=== PATIENT | male | born 1940 | race African-American/Black ===

== ENCOUNTER 2017-04-29 10:32 | Inpatient (IN) ==
[2017-04-29] MEDS ORDERED: ASPIRIN 325 MG TABLET PO STA (10:52)
[2017-04-29] MEDS ORDERED: ONDANSETRON 4 MG/2 ML VIAL IV STA (10:52)
[2017-04-29] MEDS ORDERED: MORPHINE 2 MG/1 ML SYRINGE IV STA (10:52)
[2017-04-29] MEDS ORDERED: METOPROLOL TARTRATE 5 MG/5 ML VIAL IV STA (10:52)
[2017-04-29] MEDS ORDERED: ENOXAPARIN 100 MG/ML SYRINGE SUBCUT STA (10:52)
--- NOTE | 2017-04-29 10:55 | Emergency Department Note ---
Arrival - Arrival Chief Complaint: Chest Pain Stated Complaint: chest pain ED Nursing Triage Note: Brought in by EMS c/o chest pain and SOB-onset last night. Reports pain relief with Nitro SL x's 2 by EMS. Also reports cough/ congestion for "a while" Mode of Arrival: Stretcher Limitations: No Limitations Source: Patient, RN Notes Reviewed Time Seen by Provider: 04/29/17 10:46 - History of Present Illness HPI Narrative: Patient is a 77-year-old black male with history of hypertension and diabetes mellitus who is seen today with a one-day history of chest pain which she describes as a tightness. Chest pain is substernal. Pain does not radiate. Patient has chronic shortness of breath. He denies cigarette smoking. Patient denies any prior history of heart disease. Shortness of breath is worse with exertion. Patient states that his pain began when he was at [employer]. Onset (ago): day(s) (1) Consistency: constant Severity: moderate Allergies/Adverse Reactions: Allergies Allergy/AdvReac Type Severity Reaction Status Date / Time No Known Allergies Allergy Verified 04/29/17 10:42 Home Medications: Home Medications Medication Instructions Recorded Confirmed Type Clopidogrel [Plavix] 75 mg PO DAILY tablet 03/17/15 07/21/16 Rx Insulin Lispro Prot/Lisp 75/25 40 unit SUBCUT AC SUPPER 30 Days 03/17/15 Rx [HumaLOG Mix 75/25] Insulin Lispro Prot/Lisp 75/25 60 unit SUBCUT AC BREAKFAST 30 Days 03/17/15 Rx [HumaLOG Mix 75/25] Potassium Chloride Cap/Tab [Micro 8 meq PO DAILY capsule 03/17/15 07/21/16 Rx K] Pravastatin [Pravachol] 20 mg PO DAILY tablet 03/17/15 07/21/16 Rx Aspirin [Ecotrin] 81 mg PO DAILY 07/20/16 07/21/16 History Carvedilol 25 mg PO BID 07/20/16 07/21/16 History Spironolactone 25 mg PO DAILY 07/20/16 07/21/16 History Review of System - Review of System 12 point system: reviewed and no additional remarkable complaints except as stated - Review of System Constitutional: Absent: chills, fever Cardiovascular: Present: chest pain, dyspnea on exertion. Absent: orthopnea, edema Gastrointestinal: Absent: abdominal pain, nausea, vomiting Medical,Surgical,& Family Hx - Medical History Cardio: History of: CHF, Hypertension No history of: Aneurysm, Cardiac Dysrhythmia, Cerebrovascular Disease, Congenital Heart Disease, CAD, [place], Pacemaker, PVD, Valvular Heart Disease, Cardiovascular Problems Psychological: No history of: Anxiety Disorders, ADHD, Behavior Problems, Bipolar Disorder, Depression, Previous Suicide Attempt, Psychiatric/Substance Abuse Tx, Schizophrenia, Violent Behavior, Psychiatric Problems Neurology: No history of: Brain Aneurysm, Cerebral Hemorrhage, Cerebrovascular Accident , Cerebral Palsy, Dementia, Migraine, Multiple Sclerosis, Parkinson's Disease, Peripheral Neuropathy, Seizures, Vertigo, Neurologocal Cancer HEENT: History of: Eye Problem (CATARACT SURGERY IN THE PAST) No history of: Ear Problem, Glaucoma, Oral Cancer, HEENT Problems Endocrine: History of: Diabetes Mellitus (IDDM), Dyslipidemia No history of: Diabetes Mellitus (NIDDM), Thyroid Disorder, Endocrine Cancer , Endocrine Problems Rheumatology: No history of;: Fibromyalgia, Myasthenia Gravis, Psoriasis Respiratory: History of: Asthma, Pneumonia, Respiratory Problems (SOB) No history of: Bronchitis, COPD, Intubation, Obstructive Sleep Apnea, Pulmonary Embolism, Pulmonary Hypertension, Lung Cancer Gastrointestinal: History of: GERD Musculoskeletal: No history of: Amputation, Back/Neck Problems, Degenerative Disk Disease, Herniated Disk, Musculoskeletal Cancer Hematology: No history of: Anemia, Blood Transfusion Reaction, Bleeding Problems, Clotting Problems, Sickle Cell Disease, Hematologic Cancer, Blood Disorders Other: No history of: Anesthesia Reactions, Cancer, HIV, Malignant Hyperthermia, MRSA, Skin Problems, Miscellaneous Medical Problems - Surgical History Cardiac Surgeries: Patient Denies: Femoral-Popliteal Bypass Graft, Cardiac Catheterization, Cardiac Surgery, Carotid Endarterectomy, Internal Defibrillator, Vascular Access Devices Thoracic Surgeries: Surgical HX of;: Kidney (Renal Surgery) (PROSTATE) Patient denies;: Lithotripsy, Nephrectomy, Organ Transplant, Lobectomy Neurologic Surgeries: Patient denies: Brain Aneurysm, Cerebral Hemorrhage, Neurologic Surgery HEENT Surgeries: Surgical HX of: Eye Surgery Patient denies: Carotid Endarterectomy, Thyroid Surgery, Tonsilectomy & Adenoidectomy Abdominal Surgeries: Patient denies: Abdominal Surgery, Appendectomy, Cholecystectomy, Colonoscopy , Gastric Bypass Surgery, EGD, Hernia Repair, Splenectomy Reproductive Surgeries: Surgical HX of;: Prostate Surgery Patient denies;: Cystoscopy, Genitourinary Surgery Orthopedic Surgeries: Patient denies;: Implanted Devices, Orthopedic Surgery, Spinal Surgery, Total Hip Replacement, Total Knee Replacement - Family History Family History: Reports;: Family Diabetes, Family Heart Disease, Family Hypertension Denies;: Family Anesthesia Reaction, Family Cancer - Social History Smoking Status: Never smoker Frequency of Alcohol Use: None Type of Drug Use: None Exam Vital Signs: Vital Signs Temperature 97.8 F 04/29/17 10:43 Pulse Rate 83 04/29/17 13:00 Respiratory Rate 18 04/29/17 13:00 Blood Pressure 161/94 04/29/17 13:00 O2 Sat by Pulse Oximetry 98 04/29/17 13:00 GENERAL: This is a well-nourished well-developed black male in no apparent distress. VITAL SIGNS: Reviewed HEENT: Head is atraumatic and normocephalic. Pupils are equal round react to light. Extraocular movements are intact. Oropharynx is benign with moist mucous membranes. NECK: Neck is soft and supple without tenderness. There are no masses. There is no lymphadenopathy. LUNGS: Lungs are clear to auscultation. Chest rises symmetrically. There is no chest wall tenderness. CV: Heart is rapid rate and rhythm without murmurs rubs or gallops. ABDOMEN: Abdomen is soft, nontender to palpation. There are no abdominal abnormal masses palpated. There is no organomegaly. Bowel sounds are present and active. SKIN: Skin is warm and dry. No rash. EXTREMITIES: Patient has full range of motion without tenderness. There is no pedal edema. NEUROLOGIC: Awake alert and oriented 4. Cranial nerves II through XII are grossly intact. Motor is 5 over 5 in all extremities bilaterally. Course - Consultations Consultation #1: Discussed with hospitalist. Patient will be admitted to their service. Time: 13:21 Results - Labs CBC & BMP: 04/29/17 12:44 04/29/17 12:44 Lab Results: I have reviewed the patients labs - EKG EKG results: interpreted by NGAD - Impressions EKG: Sinus tachycardia with a rate of 114, right bundle branch block, nonspecific ST-T wave changes. - Diagnostic Findings Procedure: Chest x-ray: image reviewed by me (No infiltrates, no pleural effusions.) Disposition Clinical Impression: Chest pain, Diabetes mellitus, Essential hypertension Case discussed with: patient Disposition: Disch To Home/Self Care Condition: Stable Time of Disposition: 13:21
--- NOTE | 2017-04-29 10:55 | EKG Report ---
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
[2017-04-29] MEDS ORDERED: ONDANSETRON 4 MG/2 ML VIAL ONE (11:11)
[2017-04-29] MEDS ORDERED: ENOXAPARIN 120 MG/0.8 ML SYRINGE SUBCUT ONE (11:11)
[2017-04-29] MEDS ORDERED: METOPROLOL TARTRATE 5 MG/5 ML VIAL IV ONE (11:12)
[2017-04-29] MEDS ORDERED: MORPHINE 2 MG/1 ML SYRINGE ONE (11:12)
[2017-04-29] MEDS ORDERED: ASPIRIN 325 MG TABLET ONE (11:12)
--- NOTE | 2017-04-29 11:19 | XRay Report ---
History: Chest pain Date: 04/29/2017 Study: Chest x-ray PA and lateral Comparison exam: March 13, 2015 chest x-ray The cardiac silhouette is upper normal in size. There is no mediastinal mass. The pulmonary vasculature is not engorged. There is no pleural effusion. The lungs and pleural spaces are clear. There is moderate thoracic spondylosis. Impression: No acute cardiopulmonary process. No adverse interval change compared to the previous study PROCEDURE INTERPRETED AT [facility] DEPARTMENT OF RADIOLOGY Final Report Signed by: Dr. Rosa Elena Membreno
[2017-04-29] MEDS ORDERED: ENOXAPARIN 80 MG/0.8 ML SYRINGE SUBCUT ONE (11:40)
[2017-04-29] MEDS ORDERED: ENOXAPARIN 30 MG/0.3 ML SYRINGE ONE (11:40)
[2017-04-29 12:51] LABS: Basophils % 0.3 % (0.0-0.8); Eosinophils # 0.3 10*3/uL (0.0-0.87); Hematocrit 33.2 VOL% (42.0-52.0); Hemoglobin 10.3 GM/DL (14.0-18.0); Immature Granulocytes % 0.3 %; Immature Granulocytes Absolute 0.02 #; Lymphocytes # 1.6 10*3/uL (1.4-4.0); Lymphocytes % 25.2 % (21.2-54.2); Mean Corpuscular Hemoglobin 26 PG (27-34); Mean Corpuscular Volume 83.4 FL (87-102); Mean Platelet Volume 10.7 FL (9.6-12.0); Monocytes # 0.7 10*3/uL (0.11-0.8); Monocytes % 10.6 % (1.7-12.7); Neutrophils # 3.7 10*3/uL (1.4-7.4); Neutrophils % 58.6 % (38.7-73.9); Platelet Count 175 T/CUMM (130-400); Red Blood Count 3.98 MC/CUMM (3.8-5.5); Red Cell Distribution Width 13.8 % (9.3-17.3); White Blood Count 6.3 T/CUMM (4-12)
[2017-04-29 13:03] LABS: INR 1.1; PT Patient Result 11.4 SECS; Partial Thromboplastin Time 33.1 SECS (0-40)
[2017-04-29 13:18] LABS: Alanine Aminotransferase 25 U/L (16-61); Albumin 2.9 G/DL (3.4-5.0); Alkaline Phosphatase 108 U/L (45-117); Aspartate Amino Transferase 18 U/L (0-37); Bilirubin,Total < 0.39 MG/DL (0.2-1.0); Blood Urea Nitrogen 17 MG/DL (7-18); Glucose 281 MG/DL (74-106); Osmolality,Calculated 290.4 MOS/KG (273-304); Potassium 4.2 MMOL/L (3.5-5.1); Sodium 140 MMOL/L (136-145); Total Protein 5.9 G/DL (6.4-8.3)
--- NOTE | 2017-04-29 14:02 | Hospitalist History & Physical ---
Assessment and Plan (1) Chest pain Status: Acute Assessment and plan: Due to the complexity of his comorbidities, we will perform a full cardiac workup. Troponins were noted at 0.020 at the time of admission, we will obtain serial troponins. If positive we will consult cardiology. Current Visit: Yes (2) Diabetes mellitus Status: Acute Assessment and plan: Blood glucose levels elevated at the time of admission at 281. We will obtain hemoglobin A1c and start Accu-Cheks with sliding scale coverage. Current Visit: Yes (3) Essential hypertension Status: Acute Assessment and plan: Blood pressures mildly elevated at the time of admission. We will resume home medications, monitor, and adjust accordingly. Current Visit: Yes History of Present Illness Chief complaint: Chest pain and shortness of breath History of present illness: This is a very pleasant 77-year-old male that presented to the ED at [facility] on this afternoon for evaluation of chest pain shortness of breath. Patient has a very extensive medical history significant for hypertension, diabetes, dyslipidemia, arthritis, pneumonia, and GERD. Patient has a surgical history significant for lithotripsy, prostatectomy, and cataract removal. The patient reports the onset of the above symptoms on last night. He reports that he did not inform his family of the symptoms that he was experiencing. He is seen by home health nurse who he in turn reported the symptoms to on this morning. She in turn called EMS who ultimately transported him here for further evaluation. Per EMS report he was given sublingual nitro 2 in route to the hospital which relieved his chest pain. Hematology panels were obtained which reported a white blood cell count at 6.3, hemoglobin 10.3, hematocrit 33.2, and platelet count at 175. Coagulation panels were obtained which reported an INR at 1.1 and PTT at 33.1. Chemistry panels were obtained which reported a sodium at 140, potassium 4.2, chloride 104 , carbon dioxide 27, anion gap at 13.2, BUN is 17, creatinine at 1.00, GFR at 104, glucose of 281, calcium at 9.0, total bilirubin at less than 0.39, AST 18, ALT 25, alkaline phosphatase at 18, total protein at 5.9 and albumin at 2.9. Cardiac enzymes were obtained which reported a troponin at 0.019. Chest x-ray was obtained which was absent for any acute cardiopulmonary process. After brief discussion with both Dr. Nicole and Dr. Shonna, the patient will be admitted to the hospitalist services for continuation of care. Home Medications Medication Instructions Recorded Confirmed Type Clopidogrel [Plavix] 75 mg PO DAILY tablet 03/17/15 07/21/16 Rx Insulin Lispro Prot/Lisp 75/25 40 unit SUBCUT AC SUPPER 30 Days 03/17/15 Rx [HumaLOG Mix 75/25] Insulin Lispro Prot/Lisp 75/25 60 unit SUBCUT AC BREAKFAST 30 Days 03/17/15 Rx [HumaLOG Mix 75/25] Potassium Chloride Cap/Tab [Micro 8 meq PO DAILY capsule 03/17/15 07/21/16 Rx K] Pravastatin [Pravachol] 20 mg PO DAILY tablet 03/17/15 07/21/16 Rx Aspirin [Ecotrin] 81 mg PO DAILY 07/20/16 07/21/16 History Carvedilol 25 mg PO BID 07/20/16 07/21/16 History Spironolactone 25 mg PO DAILY 07/20/16 07/21/16 History Allergies Allergy/AdvReac Type Severity Reaction Status Date / Time No Known Allergies Allergy Verified 04/29/17 10:42 Medical,Surgical,& Family Hx - Medical History Cardio: History of: CHF, Hypertension No history of: Aneurysm, Cardiac Dysrhythmia, Cerebrovascular Disease, Congenital Heart Disease, CAD, [place], Pacemaker, PVD, Valvular Heart Disease, Cardiovascular Problems Psychological: No history of: Anxiety Disorders, ADHD, Behavior Problems, Bipolar Disorder, Depression, Previous Suicide Attempt, Psychiatric/Substance Abuse Tx, Schizophrenia, Violent Behavior, Psychiatric Problems Neurology: No history of: Brain Aneurysm, Cerebral Hemorrhage, Cerebrovascular Accident , Cerebral Palsy, Dementia, Migraine, Multiple Sclerosis, Parkinson's Disease, Peripheral Neuropathy, Seizures, Vertigo, Neurologocal Cancer HEENT: History of: Eye Problem (CATARACT SURGERY IN THE PAST) No history of: Ear Problem, Glaucoma, Oral Cancer, HEENT Problems Endocrine: History of: Diabetes Mellitus (IDDM), Dyslipidemia No history of: Diabetes Mellitus (NIDDM), Thyroid Disorder, Endocrine Cancer , Endocrine Problems Rheumatology: No history of;: Fibromyalgia, Myasthenia Gravis, Psoriasis Respiratory: History of: Asthma, Pneumonia, Respiratory Problems (SOB) No history of: Bronchitis, COPD, Intubation, Obstructive Sleep Apnea, Pulmonary Embolism, Pulmonary Hypertension, Lung Cancer Gastrointestinal: History of: GERD Musculoskeletal: No history of: Amputation, Back/Neck Problems, Degenerative Disk Disease, Herniated Disk, Musculoskeletal Cancer Hematology: No history of: Anemia, Blood Transfusion Reaction, Bleeding Problems, Clotting Problems, Sickle Cell Disease, Hematologic Cancer, Blood Disorders Other: No history of: Anesthesia Reactions, Cancer, HIV, Malignant Hyperthermia, MRSA, Skin Problems, Miscellaneous Medical Problems - Surgical History Cardiac Surgeries: Patient Denies: Femoral-Popliteal Bypass Graft, Cardiac Catheterization, Cardiac Surgery, Carotid Endarterectomy, Internal Defibrillator, Vascular Access Devices Thoracic Surgeries: Surgical HX of;: Kidney (Renal Surgery) (PROSTATE) Patient denies;: Lithotripsy, Nephrectomy, Organ Transplant, Lobectomy Neurologic Surgeries: Patient denies: Brain Aneurysm, Cerebral Hemorrhage, Neurologic Surgery HEENT Surgeries: Surgical HX of: Eye Surgery Patient denies: Carotid Endarterectomy, Thyroid Surgery, Tonsilectomy & Adenoidectomy Abdominal Surgeries: Patient denies: Abdominal Surgery, Appendectomy, Cholecystectomy, Colonoscopy , Gastric Bypass Surgery, EGD, Hernia Repair, Splenectomy Reproductive Surgeries: Surgical HX of;: Prostate Surgery Patient denies;: Cystoscopy, Genitourinary Surgery Orthopedic Surgeries: Patient denies;: Implanted Devices, Orthopedic Surgery, Spinal Surgery, Total Hip Replacement, Total Knee Replacement - Family History Family History: Reports;: Family Diabetes, Family Heart Disease, Family Hypertension Denies;: Family Anesthesia Reaction, Family Cancer - Social History Smoking Status: Never smoker Frequency of Alcohol Use: None Type of Drug Use: None 12 point system: reviewed and no additional remarkable complaints except as stated Exam - Constitutional Vitals: Period Temp Pulse Resp BP Sys/Garcia Pulse Ox Last 24 Hr 97.8 F-97.8 F 79-114 16-24 149-162/93-105 95-98 General appearance: normal weight, no acute distress - Head Head exam: Present: normal inspection, normocephalic, atraumatic - Eye Eye exam: Present: EOMI, conjunctival injection Pupils: Present: LIVIA, normal accommodation - ENT ENT exam: Present: normal exam, normal external ear exam, normal oropharynx - Neck Neck exam: Present: normal inspection. Absent: lymphadenopathy, meningismus, thyromegaly - Respiratory Respiratory exam: Present: clear to auscultation bilaterally. Absent: rales, rhonchi, stridor, wheezes - Cardiovascular Cardiovascular exam: Present: regular rate and rhythm. Absent: carotid bruit, diastolic murmur, gallop, JVD, rubs, systolic murmur - GI/Abdominal GI/Abdominal exam: Present: normal bowel sounds, soft - Extremities Exam Extremities exam: Present: normal capillary refill, full ROM. Absent: normal inspection, calf tenderness, edema - Back Exam Back exam: Present: normal inspection - Neurological Exam Neurological exam: Present: alert, oriented X3 - Psychiatric Psychiatric exam: Present: normal affect, normal mood - Skin Skin exam: Present: normal color, warm, dry Results - Labs CBC & BMP: 04/29/17 12:44 04/29/17 12:44 Lab Results: I have reviewed the past 24 hour labs
[2017-04-29 17:27] LABS: Risk Ratio 3.6; VLDL CHOLESTEROL 21.4 MG/DL
[2017-04-29] MEDS: CARVEDILOL 25 MG TABLET PO SCH (21:49)
[2017-04-30 05:58] LABS: Calcium 9.2 MG/DL (8.5-10.1); Osmolality,Calculated 281.1 MOS/KG (273-304); Potassium 4.3 MMOL/L (3.5-5.1)
[2017-04-30] MEDS: ALBUTEROL 2.5 MG/3 ML NEB RESP TX SCH (07:34)
--- NOTE | 2017-04-30 08:18 | EKG Report ---
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
[2017-04-30] MEDS: POTASSIUM CHLORIDE 8 MEQ CAPSULE PO SCH (08:21)
[2017-04-30] MEDS: CLOPIDOGREL 75 MG TABLET PO SCH (08:21)
[2017-04-30] MEDS: PANTOPRAZOLE 40 MG TABLET PO SCH (08:22)
[2017-04-30] MEDS: SPIRONOLACTONE 25 MG TABLET PO SCH (08:22)
[2017-04-30] MEDS: ASPIRIN EC 81 MG TABLET PO SCH (08:22)
[2017-04-30] MEDS: CARVEDILOL 25 MG TABLET PO SCH ×2 (08:22→22:26)
--- NOTE | 2017-04-30 08:58 | Hospitalist Progress Note ---
Assessment and Plan (1) Chest pain Status: Acute Assessment and plan: Due to the complexity of his comorbidities, we will perform a full cardiac workup. Troponins were noted at 0.020 at the time of admission, we will obtain serial troponins. If positive we will consult cardiology. 04/30-serial troponins have been essentially negative; thus far. No further complaints of chest pain reported. Current Visit: Yes (2) Diabetes mellitus Status: Acute Assessment and plan: Blood glucose levels elevated at the time of admission at 281. We will obtain hemoglobin A1c and start Accu-Cheks with sliding scale coverage. 04/30-blood glucose levels remain elevated; continue Accu-Checks with sliding scale coverage. Hemoglobin A1c was not obtained on yesterday we will reorder today Current Visit: Yes (3) Essential hypertension Status: Acute Assessment and plan: Blood pressures mildly elevated at the time of admission. We will resume home medications, monitor, and adjust accordingly. Current Visit: Yes (4) COPD (chronic obstructive pulmonary disease) Status: Acute Assessment and plan: The source of the chest pain and discomfort may be from a true underlying respiratory issue. The patient generally uses inhaled bronchodilators at home. We started the patient on inhaled bronchodilators at the time of admission and the patient was observed using his own personal inhaler. This morning upon assessment he was noted to have a noted expiratory wheeze, BMP was not obtained on yesterday we will obtain one today however the patient may need intravenous corticosteroids. Recheck chest x-ray in a.m. Current Visit: Yes Hospitalist: Subjective Interval history: Patient seen and examined; chart reviewed. No further episodes of chest pain reported per patient; however the patient has noted expiratory wheeze. I observed him using his on personal inhaler. Encouraged him not to use the inhaler in addition to the scheduled bronchodilator treatments that are being administered now. I informed the nursing staff that the patient was noted using his own inhaler. Exam - Constitutional Vitals: Period Temp Pulse Resp BP Sys/Garcia Pulse Ox Last 24 Hr 96.8 F-97.8 F 66-114 16-24 149-181/82-105 95-100 General appearance: normal weight, no acute distress - Head Head exam: Present: normal inspection, normocephalic - Eye Eye exam: Present: EOMI, conjunctival injection Pupils: Present: LIVIA, normal accommodation - ENT ENT exam: Present: normal exam, normal external ear exam - Neck Neck exam: Present: normal inspection. Absent: lymphadenopathy, meningismus, tenderness, thyromegaly - Respiratory Respiratory exam: Present: wheezes - Cardiovascular Cardiovascular exam: Present: regular rate and rhythm. Absent: carotid bruit, diastolic murmur, gallop, JVD, rubs, systolic murmur - GI/Abdominal GI/Abdominal exam: Present: normal bowel sounds, soft - Extremities Exam Extremities exam: Present: normal inspection, normal capillary refill, full ROM , edema - Back Exam Back exam: Present: normal inspection - Neurological Exam Neurological exam: Present: alert, oriented X3, CN II-XII intact - Psychiatric Psychiatric exam: Present: normal affect, normal mood - Skin Skin exam: Present: normal color, warm, dry Results - Labs CBC & BMP: 04/29/17 12:44 04/30/17 05:02 Lab Results: I have reviewed the past 24 hour labs
[2017-04-30] MEDS ORDERED: LOSARTAN 25 MG TABLET PO SCH (09:00)
[2017-04-30] MEDS: methylPREDNISolone SOD SUC 125 MG/2 ML VIAL IV SCH ×2 (09:37→16:33)
[2017-04-30] MEDS ORDERED: DEXTROSE 50% 25 GM/50 ML VIAL IV PRN (09:41)
[2017-04-30] MEDS ORDERED: GLUCAGON 1 MG VIAL IM PRN (09:41)
[2017-04-30] MEDS ORDERED: ONDANSETRON 4 MG/2 ML VIAL IV PRN (09:41)
--- NOTE | 2017-04-30 10:29 | Cardiology Consult Note ---
Assessment and Plan - Time spent with patient Time spent with patient: Greater than 30 minutes (due to assessment, plan, and documentation) (1) Chest pain Status: Acute Assessment and plan: See plan of care listed below. Current Visit: Yes (2) Dyspnea Status: Chronic Assessment and plan: See plan of care listed below. Current Visit: No (3) Coronary artery disease Status: Chronic Assessment and plan: See plan of care listed below. Current Visit: Yes (4) Status post insertion of drug eluting coronary artery stent Status: Chronic Assessment and plan: See plan of care listed below. Current Visit: No (5) Essential hypertension Status: Chronic Assessment and plan: See plan of care listed below. Current Visit: Yes (6) Dyslipidemia Status: Chronic Assessment and plan: See plan of care listed below. Current Visit: No (7) Diabetes mellitus Status: Chronic Assessment and plan: See plan of care listed below. Current Visit: Yes (8) Former smoker, stopped smoking in distant past Status: Chronic Assessment and plan: See plan of care listed below. Current Visit: Yes (9) Obesity (BMI 30-39.9) Status: Chronic Assessment and plan: See plan of care listed below. Current Visit: Yes History of Present Illness - Data of Consult Patient: known to practice within the last 3 years (last seen by Dr. 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 FREDERICK PCP: DR. RUSH Mr. Rodriguez is a 77 year old -[place] male with history of hypertension, diabetes, hyperlipidemia, coronary artery disease, and GERD. He is status post stent placement of the left anterior descending artery and mid posterior descending artery on 03/15/2015. At that time he was found to have an ejection fraction of 30-35% with moderate to severe global hypokinesis. He was last seen by Dr. Frederick on August 14, 2015 has not been seen by cardiology since that time. He is a former smoker, having quit in 1964. He presented to the hospital yesterday with complaints of chest pain and shortness of breath. He reports he has had chronic shortness of breath for the past 20 years but that this has been worse over the past year or so. He tells me that he started having some chest discomfort on Saturday night and woke up on Saturday morning with midsternal to left-sided chest tightness. He had no associated palpitations, nausea, diaphoresis. It did not radiate. It is nonreproducible. He can identify no aggravating or alleviating factors. He tells me that this pain lasted until he was seen by medical personnel. He informed his home health nurse about this pain yesterday morning and she called ambulance. He was given 2 sublingual nitroglycerin upon arrival to the ER which relieved his pain. He denies any recent exertional chest discomfort but reports he has severe dyspnea on exertion and can walk no more than 20-30 feet without becoming severely short of breath and needing to stop and rest. On admission, he has had 2 sets of negative cardiac biomarkers and his EKG is unremarkable. Will recheck a third set of cardiac enzymes. An echocardiogram is pending. His home medications including Plavix and aspirin have been continued. ASSESSMENT/PLAN: 1. CHEST PAIN - Patient presents with symptoms typical for angina in the setting of negative cardiac biomarkers and no acute EKG changes. Patient's Plavix and ASA have been continued. Will further discuss the need for further evaluation with Dr. Nelson and await his recommendations. 2. SHORTNESS OF BREATH- Patient reports this has progressively worsened over the last year. Echocardiogram is pending. Prior EF was 30-35%. 3. CORONARY ARTERY DISEASE - S/P stent to LAD and mid PDA on 03/15/15. Contine ASA, Plavix, Coreg, Cozaar. 4. HYPERTENSION - Elevated on admission. Remains suboptimally controlled. Will continue to monitor and adjust medications accordingly. 5. HYPERLIPIDEMIA - Triglycerides 107, Cholesterol 187, LDL 128, HDL 52. Will start Crestor 20mg PO QHS and monitor. 6. DIABETES - Patient has been started on accuchecks with sliding scale insulin. 7. FORMER SMOKER - Patient reportedly quit in 1964. 8. OBESITY - Chronic. Dr. Nelson to follow with further plan and addendum. CC: Preethi Oliveira MD - Home Medications and Allergies Home Medications: Home Medications Medication Instructions Recorded Confirmed Type Clopidogrel [Plavix] 75 mg PO DAILY tablet 03/17/15 04/29/17 Rx Potassium Chloride Cap/Tab [Micro 8 meq PO DAILY capsule 03/17/15 04/29/17 Rx K] Aspirin [Ecotrin] 81 mg PO DAILY 07/20/16 04/29/17 History Carvedilol 25 mg PO BID 07/20/16 04/29/17 History Spironolactone 25 mg PO DAILY 07/20/16 04/29/17 History Albuterol Sulfate [Ventolin HFA] 1 puff INH DAILY 04/29/17 04/29/17 History Dapagliflozin Propanediol [Farxiga] 10 mg PO DAILY 04/29/17 04/29/17 History Insulin Glargine,Hum.rec.anlog 86 units SUBCUT DAILY 04/29/17 04/29/17 History [Toujosé antonioo SoloStar] Losartan Potassium 25 mg PO DAILY 04/29/17 04/29/17 History Pantoprazole Tab [Protonix Tab] 40 mg PO DAILY 04/29/17 04/29/17 History Sitagliptin Phosphate [Januvia] 50 mg PO DAILY 04/29/17 04/29/17 History Allergies/Adverse Reactions: Allergies Allergy/AdvReac Type Severity Reaction Status Date / Time No Known Allergies Allergy Verified 04/29/17 10:42 Review of systems: - Constitutional: Present: fatigue, As per HPI. Absent: anorexia, chills, daytime sleepiness, excessive sweating, fever(s), frequent falls, headache(s), increased appetite, lethargy, malaise, night sweats, stops breathing during sleep, weakness, weight gain, weight loss. - EENT Eyes: Present: As per HPI. Absent: blurry vision, diplopia, loss of vision Ears: Present: As per HPI. Absent: decreased hearing, ear discharge, ear pain Nose, mouth and throat: Present: As per HPI. Absent: dysphagia, epistaxis, headache(s), hoarseness, lip swelling, nasal congestion, neck mass, neck pain, sinus pressure, sore throat, throat swelling, tongue swelling, vertigo - Cardiovascular: Present: chest pain at rest, dyspnea, dyspnea on exertion, edema, as per HPI. Absent: chest pain with activity, claudication, diaphoresis , radiating jaw, neck or arm pain, lightheadedness, orthopnea, palpitations, PND - Respiratory: Present: dyspnea, dyspnea on exertion, as per HPI. Absent: cough , hemoptysis, wheezing, snoring, pain on inspiration - Gastrointestinal: Present: As per HPI. Absent: abdominal pain, bloating, change in bowel habits, constipation, diarrhea, heartburn, hematemesis, hematochezia, loose stools, melena, nausea, vomiting - Genitourinary: Present: As per HPI. Absent: difficulty urinating, dysuria, flank pain, hematuria, nocturia, urinary frequency, urinary incontinence - Musculoskeletal: Present: As per HPI. Absent: arthralgias, back pain, joint swelling, limited range of motion, muscle cramps, muscle weakness, myalgias - Neurological: Present: As per HPI. Absent: abnormal gait, abnormal speech, behavioral changes, confusion, convulsions, disequilibrium, dizziness, focal weakness, frequent falls, headache(s), memory loss, numbness, paresthesias, radicular pain, syncope, tremor(s) - Psychiatric: Present: As per HPI. Absent: anxiety, confusion, depression, panic attacks - Endocrine: Present: fatigue, As per HPI. Absent: cold intolerance, heat intolerance, polydipsia, polyphagia - Hematologic/Lymphatic: Present: As per HPI. Absent: easy bleeding, easy bruising, lymphadenopathy Medical,Surgical,& Family Hx - Medical History Cardio: History of: CHF, Hypertension No history of: Aneurysm, Cardiac Dysrhythmia, Cerebrovascular Disease, Congenital Heart Disease, CAD, MD, Pacemaker, PVD, Valvular Heart Disease, Cardiovascular Problems Psychological: No history of: Anxiety Disorders, ADHD, Behavior Problems, Bipolar Disorder, Depression, Previous Suicide Attempt, Psychiatric/Substance Abuse Tx, Schizophrenia, Violent Behavior, Psychiatric Problems Neurology: No history of: Brain Aneurysm, Cerebral Hemorrhage, Cerebrovascular Accident , Cerebral Palsy, Dementia, Migraine, Multiple Sclerosis, Parkinson's Disease, Peripheral Neuropathy, Seizures, Vertigo, Neurologocal Cancer HEENT: History of: Eye Problem (CATARACT SURGERY IN THE PAST) No history of: Ear Problem, Glaucoma, Oral Cancer, HEENT Problems Endocrine: History of: Diabetes Mellitus (IDDM), Dyslipidemia No history of: Diabetes Mellitus (NIDDM), Thyroid Disorder, Endocrine Cancer , Endocrine Problems Rheumatology: No history of;: Fibromyalgia, Myasthenia Gravis, Psoriasis Respiratory: History of: Asthma, Pneumonia, Respiratory Problems (SOB) No history of: Bronchitis, COPD, Intubation, Obstructive Sleep Apnea, Pulmonary Embolism, Pulmonary Hypertension, Lung Cancer Gastrointestinal: History of: GERD Musculoskeletal: No history of: Amputation, Back/Neck Problems, Degenerative Disk Disease, Herniated Disk, Musculoskeletal Cancer Hematology: No history of: Anemia, Blood Transfusion Reaction, Bleeding Problems, Clotting Problems, Sickle Cell Disease, Hematologic Cancer, Blood Disorders Other: No history of: Anesthesia Reactions, Cancer, HIV, Malignant Hyperthermia, MRSA, Skin Problems, Miscellaneous Medical Problems - Surgical History Cardiac Surgeries: Patient Denies: Femoral-Popliteal Bypass Graft, Cardiac Catheterization, Cardiac Surgery, Carotid Endarterectomy, Internal Defibrillator, Vascular Access Devices Thoracic Surgeries: Surgical HX of;: Kidney (Renal Surgery) (PROSTATE) Patient denies;: Lithotripsy, Nephrectomy, Organ Transplant, Lobectomy Neurologic Surgeries: Patient denies: Brain Aneurysm, Cerebral Hemorrhage, Neurologic Surgery HEENT Surgeries: Surgical HX of: Eye Surgery Patient denies: Carotid Endarterectomy, Thyroid Surgery, Tonsilectomy & Adenoidectomy Abdominal Surgeries: Patient denies: Abdominal Surgery, Appendectomy, Cholecystectomy, Colonoscopy , Gastric Bypass Surgery, EGD, Hernia Repair, Splenectomy Reproductive Surgeries: Surgical HX of;: Prostate Surgery Patient denies;: Cystoscopy, Genitourinary Surgery Orthopedic Surgeries: Patient denies;: Implanted Devices, Orthopedic Surgery, Spinal Surgery, Total Hip Replacement, Total Knee Replacement - Family History Family History: Reports;: Family Diabetes, Family Heart Disease, Family Hypertension Denies;: Family Anesthesia Reaction, Family Cancer - Social History Smoking Status: Former smoker Have you smoked in the last 12 months: No Frequency of Alcohol Use: None Type of Drug Use: None Marital Status: Lives With:: Alone Functional capacity: independent ambulation Physical Examination Vital Signs Temp Pulse Resp BP Pulse Ox 97.8 F 114 H 22 162/105 95 04/29/17 10:38 04/29/17 10:38 04/29/17 10:38 04/29/17 10:38 04/29/17 10:38 Other: General appearance: Pleasant and cooperative. Overweight, no acute distress. - Head Head exam: Present: normal inspection, normocephalic, atraumatic. Absent: hematoma, laceration - Eye Eye exam: Present: EOMI. Absent: conjunctival injection, nystagmus, periorbital swelling, scleral icterus, laceration to eyelids Pupils: Present: PERRL. Absent: constricted, dilated, fixed, irregular, unequal - ENT ENT exam: Present: normal exam, normal external ear exam - Neck Neck exam: Present: normal inspection. Absent: lymphadenopathy, meningismus, tenderness, thyromegaly - Respiratory Respiratory exam: Present: clear to auscultation bilaterally. Absent: accessory muscle use, chest wall tenderness - Cardiovascular Cardiovascular exam: Present: regular rate and rhythm. Absent: carotid bruit, gallop, JVD, rubs, murmur - GI/Abdominal GI/Abdominal exam: Present: normal bowel sounds, soft. Absent: distended, firm , guarding, hernia, mass, tenderness, rebound. - Extremities Exam Extremities exam: Present: normal inspection, normal capillary refill. Upper extremity pulses 2+. Lower extremity pulses 2+. Trace pretibial edema. Absent: calf tenderness -Musculoskeletal Exam Musculoskeletal: Present: No Fluid Collection, No Pain, Normal Range of Motion - Back Exam Back exam: Present: normal inspection. Absent: muscle spasm, vertebral tenderness - Neurological Exam Neurological exam: Present: alert, oriented X3, grossly intact without resting or essential tremor - Psychiatric Psychiatric exam: Present: normal affect, normal mood - Skin Skin exam: Present: normal color, warm, dry, intact. Absent: cyanosis, diaphoretic, rash, urticaria Result/EKG - Labs CBC & BMP: 04/29/17 12:44 04/30/17 05:02 Lab Results: I have reviewed the past 24 hour labs Labs: Laboratory Results - last 24 hr 04/29/17 04/29/17 04/29/17 12:44 12:44 12:44 WBC 6.3 RBC 3.98 Hgb 10.3 L Hct 33.2 L MCV 83.4 L MCH 26 L MCHC 31.0 L RDW 13.8 Plt Count 175 MPV 10.7 Neut % (Auto) 58.6 Lymph % (Auto) 25.2 Ballard % (Auto) 10.6 Eos % (Auto) 5.0 Baso % (Auto) 0.3 Neut # (Auto) 3.7 Lymph # (Auto) 1.6 Ballard # (Auto) 0.7 Eos # (Auto) 0.3 Baso # (Auto) 0.0 Immature Gran % 0.3 Nucleated RBC % 0.0 Immature Gran # 0.02 Nucleated RBCs # 0.00 INR 1.1 PT Patient/Control Mix 11.4 Circ Anticoag PTT 33.1 Sodium 140 Potassium 4.2 Chloride 104 Carbon Dioxide 27 Anion Gap 13.2 BUN 17 Creatinine 1.00 GFR Calculation 104 BUN/Creatinine Ratio 17.00 Glucose 281 H Hemoglobin A1c Calculated Osmolality 290.4 Calcium 9.0 Magnesium Total Bilirubin < 0.39 AST 18 ALT 25 Alkaline Phosphatase 108 Troponin I Total Protein 5.9 L Albumin 2.9 L Globulin 3.0 Albumin/Globulin Ratio 0.9 L Triglycerides Cholesterol LDL Cholesterol VLDL Cholesterol HDL Cholesterol Heart Disease Risk Ratio 04/29/17 04/29/17 04/29/17 12:44 15:00 15:08 WBC RBC Hgb Hct MCV MCH MCHC RDW Plt Count MPV Neut % (Auto) Lymph % (Auto) Ballard % (Auto) Eos % (Auto) Baso % (Auto) Neut # (Auto) Lymph # (Auto) Ballard # (Auto) Eos # (Auto) Baso # (Auto) Immature Gran % Nucleated RBC % Immature Gran # Nucleated RBCs # INR PT Patient/Control Mix Circ Anticoag PTT Sodium Potassium Chloride Carbon Dioxide Anion Gap BUN Creatinine GFR Calculation BUN/Creatinine Ratio Glucose Hemoglobin A1c Calculated Osmolality Calcium Magnesium Total Bilirubin AST ALT Alkaline Phosphatase Troponin I 0.019 0.020 Total Protein Albumin Globulin Albumin/Globulin Ratio Triglycerides 107 Cholesterol 187 LDL Cholesterol 128.0 VLDL Cholesterol 21.4 HDL Cholesterol 52 Heart Disease Risk Ratio 3.60 04/29/17 04/30/17 04/30/17 17:42 05:02 09:19 WBC RBC Hgb Hct MCV MCH MCHC RDW Plt Count MPV Neut % (Auto) Lymph % (Auto) Ballard % (Auto) Eos % (Auto) Baso % (Auto) Neut # (Auto) Lymph # (Auto) Ballard # (Auto) Eos # (Auto) Baso # (Auto) Immature Gran % Nucleated RBC % Immature Gran # Nucleated RBCs # INR PT Patient/Control Mix Circ Anticoag PTT Sodium 142 Potassium 4.3 Chloride 106 Carbon Dioxide 28 Anion Gap 12.3 BUN 13 Creatinine 0.90 GFR Calculation 122 BUN/Creatinine Ratio 14.00 Glucose 74 Hemoglobin A1c Calculated Osmolality 281.1 Calcium 9.2 Magnesium 2.0 Total Bilirubin AST ALT Alkaline Phosphatase Troponin I 0.016 < 0.015 Total Protein Albumin Globulin Albumin/Globulin Ratio Triglycerides Cholesterol LDL Cholesterol VLDL Cholesterol HDL Cholesterol Heart Disease Risk Ratio 04/30/17 09:19 WBC RBC Hgb Hct MCV MCH MCHC RDW Plt Count MPV Neut % (Auto) Lymph % (Auto) Ballard % (Auto) Eos % (Auto) Baso % (Auto) Neut # (Auto) Lymph # (Auto) Ballard # (Auto) Eos # (Auto) Baso # (Auto) Immature Gran % Nucleated RBC % Immature Gran # Nucleated RBCs # INR PT Patient/Control Mix Circ Anticoag PTT Sodium Potassium Chloride Carbon Dioxide Anion Gap BUN Creatinine GFR Calculation BUN/Creatinine Ratio Glucose Hemoglobin A1c 8.5 H Calculated Osmolality Calcium Magnesium Total Bilirubin AST ALT Alkaline Phosphatase Troponin I Total Protein Albumin Globulin Albumin/Globulin Ratio Triglycerides Cholesterol LDL Cholesterol VLDL Cholesterol HDL Cholesterol Heart Disease Risk Ratio - EKG EKG results: interpreted by me, sinus rhythm (with right bundle branch block )
[2017-04-30 11:36] LABS: CKMB % 2.5 %; Troponin I Only < 0.015 NG/ML (0.00-0.045)
[2017-04-30] MEDS: INSULIN REGULAR 100 UNIT/ML SUBCUT SCH ×3 (12:11→22:25)
[2017-04-30 16:37] LABS: CKMB % 2.9 %; Troponin I Only < 0.015 NG/ML (0.00-0.045)
--- NOTE | 2017-04-30 18:37 | ECHO Report ---
Freeman Rodriguez Exam Date: 04/30/2017 07:53 Referring Physician: Technologist: yina Faust ARDMS, RVT Age: 77 Ht (in): 68 Wt (lb): 248 Gender: M Exam Location: [facility] Echo Indications: Chest pain, unspecified, Essential (primary) hypertension, Shortness of breath, Diabetes BP: 166 / 89 HR: 74 Rhythm: Sinus Technical Quality: Good IMPRESSIONS Mild to moderate left ventricular hypertrophy. Left ventricular ejection fraction is estimated at 55%. The right atrium is mildly enlarged. The left atrium is mildly enlarged. Trace mitral valve regurgitation. Aortic valve sclerosis without stenosis or regurgitation. Sessile 0.7 cm, round pedunculated mass below the AV [ ? myxoma in an unusual location --not fixed to the valve] . Trace tricuspid valve regurgitation. Tricuspid regurgitation velocities suggest a PAP of 28 mmHg. Trace pulmonary valve regurgitation. MEASUREMENTS (Male / Female) Normal Values 2D ECHO LV Diastolic Diameter PLAX 5.5 cm 4.2 - 5.9 / 3.9 - 5.3 cm LV Systolic Diameter PLAX 3.5 cm LV Fractional Shortening PLAX 35.6 % IVS Diastolic Thickness 1.4 cm 0.6 - 1.0 / 0.6 - 0.9 cm LVPW Diastolic Thickness 1.1 cm 0.6 - 1.0 / 0.6 - 0.9 cm RV Internal Dim ED PLAX 3.5 cm Aortic Root Diameter 3.4 cm LA Systolic Diameter LX 4.9 cm 3.0 - 4.0 / 2.7 - 3.8 cm DOPPLER TR Peak Velocity 212.0 cm/s TR Peak Gradient 18.0 mmHg FINDINGS Left Ventricle Normal left ventricular cavity size. Mild left ventricular hypertrophy. Left ventricular ejection fraction is estimated at 55%. Right Ventricle The right ventricle is normal in size and function. Right Atrium The right atrium is mildly enlarged. Left Atrium The left atrium is mildly enlarged. Mitral Valve Morphologically normal mitral valve. Trace mitral valve regurgitation. Aortic Valve Aortic valve sclerosis without stenosis or regurgitation. sessile 0.7 cm, round pedunculated mass below the AV[ ? myxoma] Tricuspid Valve Morphologically normal tricuspid valve. Trace tricuspid valve regurgitation. Tricuspid regurgitation velocities suggest a PAP of 28 mmHg. Pulmonic Valve Morphologically normal pulmonic valve. Trace pulmonary valve regurgitation. Pericardium Normal pericardium without effusion. Aorta Normal ascending aorta dimension. Dennis Touchstone MD (Electronically Signed) Final Date: 30 April 2017 18:36
--- NOTE | 2017-05-01 00:48 | History and Physical Update ---
Sedation H&P Update - History and Physical H&P was reviewed, the patient examined and there: are no changes in the patients condition since last H&P was completed. - Dictation Physical: refer to H&P completed by admitting physician - Physical Exam Mental Status: alert and oriented Heart: regular rate and rhythm Lung: clear to auscultation Abdomen: within normal limits Vitals: within normal limits - Sedation Plan for Sedation: minimal Patient Consent: Procedure disscussed with patient and patinet has consented., Risks and benefits were discussed with patient,including infection,, bleeding, injury to surrounding structures, seizure, temporary nerve, Patient understands and accepts potential risks/benefits and agrees to, proceed. ASA Class: II Airway Assessment: Class III: Soft palate, base of uvula visible
[2017-05-01] MEDS: methylPREDNISolone SOD SUC 125 MG/2 ML VIAL IV SCH ×3 (01:42→17:29)
[2017-05-01 05:35] LABS: Basophils % 0.1 % (0.0-0.8); Hematocrit 34.4 VOL% (42.0-52.0); Hemoglobin 10.7 GM/DL (14.0-18.0); Immature Granulocytes % 0.7 %; Lymphocytes # 1.1 10*3/uL (1.4-4.0); Lymphocytes % 8.1 % (21.2-54.2); Mean Corpuscular HGB Conc 31.1 GM/DL (32-36); Mean Corpuscular Hemoglobin 26 PG (27-34); Mean Corpuscular Volume 82.3 FL (87-102); Mean Platelet Volume 11.7 FL (9.6-12.0); Monocytes # 0.2 10*3/uL (0.11-0.8); Monocytes % 1.4 % (1.7-12.7); Neutrophils # 12.3 10*3/uL (1.4-7.4); Neutrophils % 89.7 % (38.7-73.9); Platelet Count 207 T/CUMM (130-400); Red Blood Count 4.18 MC/CUMM (3.8-5.5); Red Cell Distribution Width 13.9 % (9.3-17.3); White Blood Count 13.7 T/CUMM (4-12)
[2017-05-01 06:11] LABS: Magnesium 2.1 MG/DL (1.8-2.4); Osmolality,Calculated 287.8 MOS/KG (273-304); Potassium 4.6 MMOL/L (3.5-5.1); Risk Ratio 3.57; VLDL CHOLESTEROL 9.8 MG/DL
[2017-05-01] MEDS ORDERED: DIAZEPAM 5 MG TABLET PO ONE (07:00)
[2017-05-01] MEDS ORDERED: MAGNESIUM SULF RIDER 2 GM in PREMIX 1 EACH IV PRN (07:00)
[2017-05-01] MEDS ORDERED: SODIUM CHLORIDE 0.9% 1,000 ML IV SCH (07:00)
[2017-05-01] MEDS ORDERED: POTASSIUM CHLORIDE RIDER 10 MEQ in PREMIX 1 EACH IV PRN (07:00)
[2017-05-01] MEDS ORDERED: diphenhydrAMINE CAP 25 MG CAPSULE PO ONE (07:00)
[2017-05-01] MEDS: ALBUTEROL 2.5 MG/3 ML NEB RESP TX SCH (07:22)
--- NOTE | 2017-05-01 07:45 | EKG Report ---
Stationary ECG Study [facility] Test Date: 05/01/2017 7:45:24 AM Pat Name: MARYBETH REID Department: Room: 276 Gender: M Surgery Specialist: GEMA : [id number] Requested by: Dennis Nelson Order Number: [id number] Clifford MD: CHANDU DOWNING Intervals [place] Rate: 89 P: 53 ID: [id number] QRS: 64 QRSD: 139 T: 46 QT: 390 QTc: 437 Interpretive Statements SINUS RHYTHM RIGHT BUNDLE BRANCH BLOCK Electronically Signed On 05-01-17 17:09:38 CDT by CHANDU DOWNING [email or web address]
[2017-05-01] MEDS: INSULIN REGULAR 100 UNIT/ML SUBCUT SCH ×4 (07:53→21:06)
[2017-05-01] MEDS: POTASSIUM CHLORIDE 8 MEQ CAPSULE PO SCH (11:48)
[2017-05-01] MEDS: ASPIRIN EC 81 MG TABLET PO SCH (11:48)
[2017-05-01] MEDS: LOSARTAN 50 MG TABLET PO SCH (11:48)
[2017-05-01] MEDS: CLOPIDOGREL 75 MG TABLET PO SCH (11:48)
[2017-05-01] MEDS: PANTOPRAZOLE 40 MG TABLET PO SCH (11:48)
[2017-05-01] MEDS: SPIRONOLACTONE 25 MG TABLET PO SCH (11:48)
[2017-05-01] MEDS: CARVEDILOL 25 MG TABLET PO SCH ×2 (11:49→21:07)
--- NOTE | 2017-05-01 11:58 | Hospitalist Progress Note ---
Assessment and Plan (1) Chest pain Status: Acute Assessment and plan: Pt. denies chest pain this am. NPO for heart cath. Will follow up after cath. Current Visit: Yes (2) Diabetes mellitus Status: Chronic Assessment and plan: Continue to monitor blood sugars. Blood sugars currently ranging over 250. SSI in place. Current Visit: Yes (3) Essential hypertension Status: Chronic Assessment and plan: Pt. currently stable. Home meds have been restarted. Current Visit: Yes (4) Former smoker, stopped smoking in distant past Status: Chronic Current Visit: Yes (5) COPD (chronic obstructive pulmonary disease) Status: Chronic Assessment and plan: Pt. has breathing treatments ordered. Current Visit: Yes (6) Obesity (BMI 30-39.9) Status: Chronic Current Visit: Yes Hospitalist: Subjective Interval history: Pt. seen and examined. Chart was reviewed. Pt. resting comfortably. No distress noted. Denies having any chest pain. NPO for cath today. WBC elevated today with increase in Bun/creatinine. Pt. receiving IVF. Will repeat labs in am. Exam - Constitutional Vitals: Period Temp Pulse Resp BP Sys/Garcia Pulse Ox Last 24 Hr 97.3 F-97.7 F 77-102 20-22 123-160/71-95 94-99 General appearance: no acute distress, over weight - Head Head exam: Present: normal inspection, normocephalic - Eye Eye exam: Present: EOMI. Absent: periorbital swelling Pupils: Present: LIVIA. Absent: dilated - Neck Neck exam: Present: normal inspection - Respiratory Respiratory exam: Present: clear to auscultation bilaterally. Absent: wheezes - Cardiovascular Cardiovascular exam: Present: regular rate and rhythm - GI/Abdominal GI/Abdominal exam: Present: normal bowel sounds, soft. Absent: tenderness - Extremities Exam Extremities exam: Present: normal capillary refill, full ROM - Neurological Exam Neurological exam: Present: alert, oriented X3 - Psychiatric Psychiatric exam: Present: normal affect, normal mood - Skin Skin exam: Present: normal color, warm, dry Results - Labs CBC & BMP: 05/01/17 04:17 05/01/17 04:17 Lab Results: I have reviewed the past 24 hour labs
[2017-05-01] MEDS ORDERED: SODIUM POLYSTYRENE SULFATE 15 GM/60 ML BOTTLE PO ONE (12:40)
[2017-05-01] MEDS ORDERED: LIDOCAINE 1%/EPI INJ 20 ML VIAL ONE (12:50)
[2017-05-01] MEDS ORDERED: MIDAZOLAM 2 MG/2 ML VIAL ONE (13:47)
[2017-05-01] MEDS ORDERED: fentaNYL 100 MCG/2 ML VIAL ONE (13:48)
--- NOTE | 2017-05-01 13:52 | History and Physical Update ---
Sedation H&P Update - History and Physical H&P was reviewed, the patient examined and there: are no changes in the patients condition since last H&P was completed. - Sedation Plan for Sedation: moderate Patient Consent: Procedure disscussed with patient and patinet has consented., Risks and benefits were discussed with patient,including infection,, bleeding, injury to surrounding structures, seizure, temporary nerve, Patient understands and accepts potential risks/benefits and agrees to, proceed. ASA Class: III Airway Assessment: Class IV: Only hard palate visible
[2017-05-01] MEDS ORDERED: TIROFIBAN 0 MCG/0 ML PREMIX IV ONE (14:01)
[2017-05-01] MEDS ORDERED: ENOXAPARIN 60 MG/0.6 ML SYRINGE ONE (14:01)
--- NOTE | 2017-05-01 14:15 | Cardiac Catheterization ---
Date of Procedure:: 05/01/17 Pre-op Diagnosis: 77-year-old male with history intracoronary stent to the LAD presents with chest discomfort troponins are marginally elevated. He is for diagnostic evaluation intervention if indicated Post-op diagnosis: same Procedure: Procedures performed: Left heart catheterization Coronary arteriography Left ventriculography [Right] femoral sheath angiography Mynx closure femoral arteriotomy site After obtaining informed consent the patient was brought to the catheterization lab where the [right] groin was prepped and draped in the usual sterile manner. After intravenous sedation and local anesthesia a needle stick was made to the right femoral artery and a [6 Irish sheath] was positioned without difficulty. A left heart catheterization was undertaken using first a Caryl left diagnostic catheter. The catheter was advanced under fluoroscopy over a guidewire and positioned with its tip in the ostium of the left main coronary artery. Multiple angiograms were obtained of the left coronary artery in multiple views. After adequate angiogram to left coronary obtain this catheter was withdrawn and an AMRM right coronary catheter was advanced over a guidewire under fluoroscopic control where angiography of the right coronary artery was undertaken in multiple views. After adequate angiograms of the right coronary artery were obtained this catheter was withdrawn. A pigtail ventriculographic catheter was advanced over a guidewire under fluoroscopic control to the ascending aorta where it was advanced across the aortic valve and intraventricular hemodynamics were measured. A ventriculogram was obtained in the RASMUSSEN projection and afterward a pullback was obtained from the ventricle to the aorta under hemodynamic monitoring and removed. At this point the patient underwent right femoral sheath angiography which demonstrated anatomy appropriate for Mynx closure. This was performed without difficulty and good hemostasis was obtained. The patient then was transferred back to the torres having suffered no significant immediate complications. Hemodynamics: Please see the accompanying data sheet Coronary arteriography: Left coronary artery: The left main coronary artery is well-developed and free of significant obstructing lesions. The circumflex coronary is a large nondominant vessel with possesses no significant lesions to its course. The branches of the circumflex likewise are free of significant obstructing lesions. The left anterior descending coronary artery is a large vessel that extends around the apex of the ventricle. The LAD has an intracoronary stent in its proximal portion which is widely patent with excellent distal flow no evidence of significant restenosis. At the apical segment of the LAD is a tight stenosis measuring 95% flow-limiting. This is very distal and affects blood supply to the apex. Right coronary artery: The right coronary artery is large vessel that is dominant and is free of significant obstructing lesions. The PDA and posterolateral branches likewise are free of significant obstructing lesions. Left ventriculography: After injection of contrast left ventricle is noted normal size with normal contractility. Mitral and aortic structures are noted to be free of significant abnormality by ventriculography. Right femoral sheath angiography: After injection of contrast in the right femoral arterial sheath it is noted be of normal caliber and enters above the bifurcation. The distal iliac, common femoral and bifurcation appear to be free of significant obstructing lesions based on this limited angiographic study. Conclusions: Distal LAD stenosis (apical) for medical management. Widely patent intracoronary stent noted in the proximal LAD Normal left ventricular size and function. Normal end-diastolic pressures at rest Mynx closure right femoral arteriotomy site Discussion recommendations the patient presents with chest discomfort. The patient has distal LAD disease which we are going to attempt to treat medically. It is very tortuous distally and would be a suboptimal result in my opinion if we tried to stent or balloon that area. We will continue aggressive medical therapy. Surgeon / Physician: Cm La - Medications / Follow-up
[2017-05-02] MEDS: methylPREDNISolone SOD SUC 125 MG/2 ML VIAL IV SCH ×3 (02:24→17:13)
[2017-05-02 05:28] LABS: Basophils % 0.1 % (0.0-0.8); Hematocrit 32.6 VOL% (42.0-52.0); Hemoglobin 10.3 GM/DL (14.0-18.0); Immature Granulocytes % 0.8 %; Immature Granulocytes Absolute 0.14 #; Lymphocytes # 0.8 10*3/uL (1.4-4.0); Lymphocytes % 4.4 % (21.2-54.2); Mean Corpuscular HGB Conc 31.6 GM/DL (32-36); Mean Corpuscular Hemoglobin 26 PG (27-34); Mean Corpuscular Volume 82.5 FL (87-102); Mean Platelet Volume 11.3 FL (9.6-12.0); Monocytes # 0.5 10*3/uL (0.11-0.8); Neutrophils # 15.7 10*3/uL (1.4-7.4); Neutrophils % 91.7 % (38.7-73.9); Platelet Count 201 T/CUMM (130-400); Red Blood Count 3.95 MC/CUMM (3.8-5.5); Red Cell Distribution Width 14.2 % (9.3-17.3); White Blood Count 17.1 T/CUMM (4-12)
[2017-05-02 05:51] LABS: Hypochromasia 1+; Lymphocytes 2 % (20-55); Microcytosis 1+; Segmented Neutrophils 97 % (50-85); Total Cells Counted 100
[2017-05-02 05:52] LABS: Platelet Estimate Normal
[2017-05-02 06:04] LABS: Calcium 8.7 MG/DL (8.5-10.1); Magnesium 2.5 MG/DL (1.8-2.4); Osmolality,Calculated 293.5 MOS/KG (273-304); Potassium 4.2 MMOL/L (3.5-5.1)
[2017-05-02] MEDS: ALBUTEROL 2.5 MG/3 ML NEB RESP TX SCH (07:21)
--- NOTE | 2017-05-02 07:45 | EKG Report ---
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
[2017-05-02] MEDS: ASPIRIN EC 81 MG TABLET PO SCH (09:52)
[2017-05-02] MEDS: PANTOPRAZOLE 40 MG TABLET PO SCH (09:52)
[2017-05-02] MEDS: CLOPIDOGREL 75 MG TABLET PO SCH (09:52)
[2017-05-02] MEDS: SPIRONOLACTONE 25 MG TABLET PO SCH (09:52)
[2017-05-02] MEDS: INSULIN REGULAR 100 UNIT/ML SUBCUT SCH ×4 (09:52→22:06)
[2017-05-02] MEDS: CARVEDILOL 25 MG TABLET PO SCH ×2 (09:52→20:39)
[2017-05-02] MEDS: LOSARTAN 50 MG TABLET PO SCH (09:52)
[2017-05-02] MEDS: POTASSIUM CHLORIDE 8 MEQ CAPSULE PO SCH (09:52)
--- NOTE | 2017-05-02 15:27 | Cardiology Progress Note ---
Assessment and Plan - Time spent with patient Time spent with patient: Less than 30 minutes (1) Chest pain Status: Acute Assessment and plan: See plan of care listed below. Current Visit: Yes (2) Dyspnea Status: Chronic Assessment and plan: See plan of care listed below. Current Visit: No (3) Coronary artery disease Status: Chronic Assessment and plan: See plan of care listed below. Current Visit: Yes (4) Status post insertion of drug eluting coronary artery stent Status: Chronic Assessment and plan: See plan of care listed below. Current Visit: No (5) Essential hypertension Status: Chronic Assessment and plan: See plan of care listed below. Current Visit: Yes (6) Dyslipidemia Status: Chronic Assessment and plan: See plan of care listed below. Current Visit: No (7) Diabetes mellitus Status: Chronic Assessment and plan: See plan of care listed below. Current Visit: Yes (8) Former smoker, stopped smoking in distant past Status: Chronic Assessment and plan: See plan of care listed below. Current Visit: Yes (9) Obesity (BMI 30-39.9) Status: Chronic Assessment and plan: See plan of care listed below. Current Visit: Yes Cardiology - PN: Subj Interval history: PUMP TENDER: DR. FREDERICK PCP: DR. RUSH Mr. Rodriguez is a 77 year old -[place] male with history of hypertension, diabetes, hyperlipidemia, coronary artery disease, and GERD who presented to the hospital on 04/29/17 with complaints of chest pain and shortness of breath. His symptoms were suggestive of his prior angina and were responsive to nitroglycerin. He had negative troponins with rhodes-zone CK-MBs and it was felt further evaluation was warranted. He underwent left heart catheterization on 05/[address] La and was found to have distal LAD stenosis for medical management, a widely patent proximal LAD stent, normal LV size and function, and normal end-diastolic pressures. The area of stenosis was very tortuous distally and would likely be a suboptimal result if PCI were attempted. These results were discussed with the patient. When discussing follow up, Mr. Rodriguez declined to follow up with cardiology and for this reason, we will not make him a follow up appointment with Dr. Frederick but recommend he follow up with his PCP Dr. Rush. His right groin is open to air, has no bleeding, hematoma, or bruit at site. Femoral pulse is 3+. Distal pulses are present and palpable bilaterally. ASSESSMENT/PLAN: 1. CHEST PAIN - Patient presents with symptoms suggestive of angina. Patient underwent LHC and was found to have distal LAD stenosis for medical management, a widely patent proximal LAD stent, normal LV size and function, and normal end- diastolic pressures. We will continue with medical therapy. 2. SHORTNESS OF BREATH- Patient reports this has progressively worsened over the last year. EF per echo on 04/30/17 was 55%. 3. CORONARY ARTERY DISEASE - S/P stent to LAD and mid PDA on 03/15/15. Contine ASA, Plavix, Coreg, Cozaar. 4. HYPERTENSION - Elevated on admission. Remains suboptimally controlled. Will continue to monitor and adjust medications accordingly. 5. HYPERLIPIDEMIA - Triglycerides 107, Cholesterol 187, LDL 128, HDL 52. Will start Crestor 20mg PO QHS and monitor. 6. DIABETES - Patient has been started on accuchecks with sliding scale insulin. 7. FORMER SMOKER - Patient reportedly quit in 1964. 8. OBESITY - Chronic. Dr. Nelson to follow with further plan and addendum. Exam (Progress Note) - Constitutional Vitals: Period Temp Pulse Resp BP Sys/Garcia Pulse Ox Last 24 Hr 97.3 F-98.6 F 76-94 18-22 112-194/66-93 92-99 Exam: General appearance: Pleasant and cooperative. Overweight, no acute distress. - Head Head exam: Present: normal inspection, normocephalic, atraumatic. Absent: hematoma, laceration - Eye Eye exam: Present: EOMI. Absent: conjunctival injection, nystagmus, periorbital swelling, scleral icterus, laceration to eyelids Pupils: Present: PERRL. Absent: constricted, dilated, fixed, irregular, unequal - ENT ENT exam: Present: normal exam, normal external ear exam - Neck Neck exam: Present: normal inspection. Absent: lymphadenopathy, meningismus, tenderness, thyromegaly - Respiratory Respiratory exam: Present: clear to auscultation bilaterally. Absent: accessory muscle use, chest wall tenderness - Cardiovascular Cardiovascular exam: Present: regular rate and rhythm. Absent: carotid bruit, gallop, JVD, rubs, murmur - GI/Abdominal GI/Abdominal exam: Present: normal bowel sounds, soft. Absent: distended, firm , guarding, hernia, mass, tenderness, rebound. - Extremities Exam Extremities exam: Present: normal inspection, normal capillary refill. Upper extremity pulses 2+. Lower extremity pulses 2+. Trace pretibial edema. Absent: calf tenderness -Musculoskeletal Exam Musculoskeletal: Present: No Fluid Collection, No Pain, Normal Range of Motion - Back Exam Back exam: Present: normal inspection. Absent: muscle spasm, vertebral tenderness - Neurological Exam Neurological exam: Present: alert, oriented X3, grossly intact without resting or essential tremor - Psychiatric Psychiatric exam: Present: normal affect, normal mood - Skin Skin exam: Present: normal color, warm, dry, intact. Absent: cyanosis, diaphoretic, rash, urticaria Result/EKG - Labs CBC & BMP: 05/02/17 05:04 05/02/17 05:04 Lab Results: I have reviewed the past 24 hour labs Labs: Laboratory Results - last 24 hr 05/01/17 05/01/17 05/02/17 16:32 20:57 05:04 WBC 17.1 H RBC 3.95 Hgb 10.3 L Hct 32.6 L MCV 82.5 L MCH 26 L MCHC 31.6 L RDW 14.2 Plt Count 201 MPV 11.3 Neut % (Auto) 91.7 H Lymph % (Auto) 4.4 L Butler % (Auto) 3.0 Eos % (Auto) 0.0 Baso % (Auto) 0.1 Neut # (Auto) 15.7 H Lymph # (Auto) 0.8 L Butler # (Auto) 0.5 Eos # (Auto) 0.0 Baso # (Auto) 0.0 Total Counted 100 Immature Gran % 0.8 Nucleated RBC % 0.0 Immature Gran # 0.14 Segmented Neutrophils 97 H Lymphocytes 2 L Monocytes 1 L Nucleated RBCs # 0.00 Platelet Estimate Normal Hypochromasia 1+ Microcytosis 1+ Sodium Potassium Chloride Carbon Dioxide Anion Gap BUN Creatinine GFR Calculation BUN/Creatinine Ratio Glucose POC Glucose 284 H 356 H Calculated Osmolality Calcium Magnesium 05/02/17 05/02/17 05/02/17 05:04 07:50 11:30 WBC RBC Hgb Hct MCV MCH MCHC RDW Plt Count MPV Neut % (Auto) Lymph % (Auto) Butler % (Auto) Eos % (Auto) Baso % (Auto) Neut # (Auto) Lymph # (Auto) Butler # (Auto) Eos # (Auto) Baso # (Auto) Total Counted Immature Gran % Nucleated RBC % Immature Gran # Segmented Neutrophils Lymphocytes Monocytes Nucleated RBCs # Platelet Estimate Hypochromasia Microcytosis Sodium 139 Potassium 4.2 Chloride 105 Carbon Dioxide 23 Anion Gap 15.2 H BUN 23 H Creatinine 1.10 GFR Calculation 95 BUN/Creatinine Ratio 20.00 Glucose 325 H POC Glucose 313 H 370 H Calculated Osmolality 293.5 Calcium 8.7 Magnesium 2.5 H - EKG EKG results: interpreted by me, sinus rhythm Quality Measures - VTE Contraindication to Pharmacological VTE Prophylaxis: High Risk of Bleeding Specialty Discharge - Follow Up or Referrals
[2017-05-02] MEDS ORDERED: LOSARTAN 50 MG TABLET PO SCH (15:59)
--- NOTE | 2017-05-02 16:31 | Hospitalist Progress Note ---
Assessment and Plan - Time spent with patient Time spent with patient: Greater than 30 minutes (1) COPD exacerbation Status: Acute Current Visit: Yes (2) Chest pain Status: Acute Assessment and plan: I reviewed pt's lab results today. I discussed with pt and RN in regarding pt's clinical status today. Improving, will taper IV steroid from 62.5mg TID to 40mg BID, hope can switch to PO in am then can dc pt in am if pt continues to do well overnight. Current Visit: Yes (3) Coronary artery disease Status: Chronic Assessment and plan: Cards f/u. Continue current treatment plan. Current Visit: Yes (4) Diabetes mellitus Status: Chronic Assessment and plan: Continue current treatment plan. Current Visit: Yes (5) Essential hypertension Status: Chronic Assessment and plan: Continue current treatment plan. Current Visit: Yes (6) Former smoker, stopped smoking in distant past Status: Chronic Current Visit: Yes (7) Obesity (BMI 30-39.9) Status: Chronic Current Visit: Yes Hospitalist: Subjective Interval history: Feeling better. No overnight acute event. On Solumedrol 62.5mg IV Q8H for COPD exacerbation. No other major discomfort complaints. Will taper IV steroid and transfer to floor today. Continue resp care, NEB and oxygen. Exam - Constitutional Vitals: Period Temp Pulse Resp BP Sys/Garcia Pulse Ox Last 24 Hr 97.7 F-98.6 F 76-94 18-22 133-194/66-93 92-99 Exam: GENERAL: Lying in bed supine. AAOx3. HEENT: Pupils equally round and reactive to light, conjunctivae clear. TMs sparrow and translucent. Oropharynx pink, with moist mucous membranes. Normal lips, teeth and gums. NECK: Supple without mass. HEART: RRR, no murmur. CHEST: Normal shape, fair air movement, no retractions. CV: RRR, no murmurs, 2+ peripheral pulses LUNGS: Decreased breath sound at b/l lower lobes. No wheezing. ABDOMEN: Soft, nontender, and no hepatosplenomegaly. SKIN: No rash or edema. LYMPH: No anterior or posterior cervical, or supraclavicular lymphadenopathy. NEURO: No gross motor deficits noted. Results - Labs CBC & BMP: 05/02/17 05:04 05/02/17 05:04 Quality Measures - VTE Contraindication to Pharmacological VTE Prophylaxis: High Risk of Bleeding Specialty Discharge - Follow Up or Referrals
[2017-05-02] MEDS: methylPREDNISolone SOD SUC 40 MG/1 ML VIAL IV SCH (18:39)
[2017-05-03] MEDS: methylPREDNISolone SOD SUC 40 MG/1 ML VIAL IV SCH (06:01)
[2017-05-03 06:19] LABS: Basophils % 0.1 % (0.0-0.8); Hematocrit 32.8 VOL% (42.0-52.0); Hemoglobin 10.4 GM/DL (14.0-18.0); Immature Granulocytes % 1.3 %; Lymphocytes # 0.9 10*3/uL (1.4-4.0); Lymphocytes % 5.6 % (21.2-54.2); Mean Corpuscular HGB Conc 31.7 GM/DL (32-36); Mean Corpuscular Hemoglobin 26 PG (27-34); Mean Corpuscular Volume 82.4 FL (87-102); Mean Platelet Volume 11.2 FL (9.6-12.0); Monocytes # 0.8 10*3/uL (0.11-0.8); Monocytes % 5.1 % (1.7-12.7); Neutrophils # 13.6 10*3/uL (1.4-7.4); Neutrophils % 87.9 % (38.7-73.9); Platelet Count 206 T/CUMM (130-400); Red Blood Count 3.98 MC/CUMM (3.8-5.5); Red Cell Distribution Width 14.4 % (9.3-17.3); White Blood Count 15.4 T/CUMM (4-12)
[2017-05-03 06:51] LABS: Calcium 8.9 MG/DL (8.5-10.1); Magnesium 2.4 MG/DL (1.8-2.4); Osmolality,Calculated 293.1 MOS/KG (273-304); Potassium 4.4 MMOL/L (3.5-5.1)
--- NOTE | 2017-05-03 07:32 | EKG Report ---
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
[2017-05-03] MEDS: CARVEDILOL 25 MG TABLET PO SCH (08:38)
[2017-05-03] MEDS: ASPIRIN EC 81 MG TABLET PO SCH (08:38)
[2017-05-03] MEDS: PANTOPRAZOLE 40 MG TABLET PO SCH (08:39)
[2017-05-03] MEDS: INSULIN REGULAR 100 UNIT/ML SUBCUT SCH ×2 (08:39→11:39)
[2017-05-03] MEDS: POTASSIUM CHLORIDE 8 MEQ CAPSULE PO SCH (08:39)
[2017-05-03] MEDS: CLOPIDOGREL 75 MG TABLET PO SCH (08:39)
[2017-05-03] MEDS: SPIRONOLACTONE 25 MG TABLET PO SCH (08:39)
--- NOTE | 2017-05-03 11:03 | Discharge Summary ---
<GroverSavaly - Last Filed: 05/03/17 10:37> Hospital Course - Hospital Course Hospital Course: Mr. Rodriguez is a 77-year-old male that presented to the ED at [facility] on 04/29 for evaluation of chest pain shortness of breath. Patient has past medical history of hypertension, diabetes, dyslipidemia, arthritis, pneumonia, and GERD. Patient states that the symptoms started the night before but that he didn't inform his family at the time. He informed his home health nurse and she called EMS. Patient was given 2 nitro en route to the ED. Cardiac enzymes were obtained which reported a troponin at 0.019. Chest x- ray was obtained which was absent for any acute cardiopulmonary process. No acute EKG changes noted. The patient was admitted to the hospitalist service for continuation of care. A full cardiac workup was performed. Patient was also treated with IV steroids and duo nebs for COPD exacerbation which has since resolved. Supplemental O2 was used. Cardiology was consulted to assist in the care of the patient. Echo/Doppler exams were ordered. Patient was evaluated and scheduled for a heart catheterization. Patient was found to have distal LAD stenosis will be treated medically and had normal left ventricular function. Patient is also diabetic and will be restarted on his home medicines but I will decrease the amount of Lantus. Patient is morbidly obese and does need to lose weight. His blood pressure is well controlled on his current medication regimen. IV steroids were switched to p.o. no acute changes overnight. We will obtain a nebulizer machine for home. The patient will be discharged home with home health. Diagnosis - Discharge Diagnosis (1) Chest pain Status: Acute (2) Diabetes mellitus Status: Chronic (3) Essential hypertension Status: Chronic (4) Former smoker, stopped smoking in distant past Status: Chronic (5) COPD (chronic obstructive pulmonary disease) Status: Chronic (6) Obesity (BMI 30-39.9) Status: Chronic Specialty Discharge - Follow Up or Referrals Discharge Plan - Discharge Data Disposition: Home Health Service - Discharge Medications New Albuterol/Ipratropium Neb [Duoneb] 3 ml RESP TX TID #90 vial predniSONE TAB [PredniSONE] 20 mg PO DAILY #20 tablet Continue Potassium Chloride Cap/Tab [Micro K] 8 meq PO DAILY capsule Clopidogrel [Plavix] 75 mg PO DAILY tablet Carvedilol 25 mg PO BID Aspirin [Ecotrin] 81 mg PO DAILY Spironolactone 25 mg PO DAILY Pantoprazole Tab [Protonix Tab] 40 mg PO DAILY Sitagliptin Phosphate [Januvia] 50 mg PO DAILY Dapagliflozin Propanediol [Farxiga] 10 mg PO DAILY Albuterol Sulfate [Ventolin HFA] 1 puff INH DAILY #1 inhaler Changed Insulin Glargine,Hum.rec.anlog [Toujeo SoloStar] 30 units SUBCUT DAILY #0 Losartan Potassium 75 mg PO DAILY #90 tablet - Follow Up or Referral Follow Up: Roge Rush MD [Physician] - 2 Weeks Dennis Nelson MD [Physician] - 2 Weeks - Forms/Instructions Instructions: Coronary Artery Disease (GEN), Left Heart Catheterization (DC), Heart Healthy Diet (GEN) Exam - Constitutional Vitals: Period Temp Pulse Resp BP Sys/Garcia Pulse Ox Last 24 Hr 97.2 F-97.9 F 73-84 16-21 116-170/68-87 93-97 Discharge Results Labs on day of discharge: Labs from last 24 hours 05/03/17 05/03/17 05/03/17 07:55 05:57 05:57 WBC 15.4 H RBC 3.98 Hgb 10.4 L Hct 32.8 L MCV 82.4 L MCH 26 L MCHC 31.7 L RDW 14.4 Plt Count 206 MPV 11.2 Neut % (Auto) 87.9 H Lymph % (Auto) 5.6 L O'Brien % (Auto) 5.1 Eos % (Auto) 0.0 Baso % (Auto) 0.1 Neut # (Auto) 13.6 H Lymph # (Auto) 0.9 L O'Brien # (Auto) 0.8 Eos # (Auto) 0.0 Baso # (Auto) 0.0 Immature Gran % 1.3 Nucleated RBC % 0.0 Immature Gran # 0.20 Nucleated RBCs # 0.00 Sodium 142 Potassium 4.4 Chloride 106 Carbon Dioxide 27 Anion Gap 13.4 BUN 20 H Creatinine 1.00 GFR Calculation 107 BUN/Creatinine Ratio 20.00 Glucose 240 H POC Glucose 273 H Calculated Osmolality 293.1 Calcium 8.9 Magnesium 2.4 05/02/17 05/02/17 16:20 11:30 WBC RBC Hgb Hct MCV MCH MCHC RDW Plt Count MPV Neut % (Auto) Lymph % (Auto) O'Brien % (Auto) Eos % (Auto) Baso % (Auto) Neut # (Auto) Lymph # (Auto) O'Brien # (Auto) Eos # (Auto) Baso # (Auto) Immature Gran % Nucleated RBC % Immature Gran # Nucleated RBCs # Sodium Potassium Chloride Carbon Dioxide Anion Gap BUN Creatinine GFR Calculation BUN/Creatinine Ratio Glucose POC Glucose 351 H 370 H Calculated Osmolality Calcium Magnesium DS: Provider Date of admission: 04/29/17 13:24 Primary care physician: . No PCP Attending physician on admission: Chele Palacios MD Consults: 04/29/17 16:30 Consult to Physician [CONS] Routine Comment: chest pain Consulting Provider: Cardiology - CIS 05/01/17 14:15 Consult to Cardiac Rehabilitation [CONS] Routine Reason for Cardiac Rehabilitation: Risk Factor Modification 05/03/17 10:11 Consult to Case Mgmt/Social Srvs [CONS] Routine Reason for Case Mgmt/Social Srvs: Equipment Consult Comment: duonebs Discharging clinician: Ree Grover NP <Katie Ventura - Last Filed: 05/03/17 11:24> Hospital Course - Time spent with patient Time with patient DS: Greater than 30 minutes (35 min) Discharge Plan - Discharge Data Condition at Discharge: Stable Discharge Diet: diabetic diet Activity: resume usual activities as tolerated Hygiene: no restrictions Weight Bearing at Discharge: full weight bearing Driving: no restrictions - Forms/Instructions Additional Discharge Instructions: Nebulizer machine for home. Exam - Constitutional General appearance: no acute distress, morbidly obese - Respiratory Respiratory exam: Present: clear to auscultation bilaterally. Absent: rhonchi, wheezes - Cardiovascular Cardiovascular exam: Present: regular rate and rhythm. Absent: systolic murmur - GI/Abdominal GI/Abdominal exam: Present: normal bowel sounds, soft. Absent: tenderness - Extremities Exam Extremities exam: Present: normal inspection, normal capillary refill - Neurological Exam Neurological exam: Present: alert, oriented X3
[2017-05-03] MEDS: ALBUTEROL 2.5 MG/3 ML NEB RESP TX SCH (11:25)
[2017-05-03 11:35] VITALS: BP 137/71
--- NOTE | 2017-05-03 21:38 | Cardiology Progress Note ---
I, Stella Dave RN, am scribing for, and in the presence of, Dennis Nelson MD 21:36. Assessment and Plan - Time spent with patient Time spent with patient: Greater than 30 minutes (1) Chest pain Status: Acute Assessment and plan: SEE PLAN OF CARE LISTED BELOW. April: No more angina at this point Heart catheter revealed distal disease. To be treated medically Moved to 5 E. Ambulate I discussed with the patient regarding avoiding straining or deep bending to either leg edema Okay with me for discharge when you say so April: -Ok from cardiology standpoint for discharge home. -He will not follow up with cardiology, per his wishes. Will follow up with PCP. -Recommend continuing ASA, PLAVIX, COREG, COZAAR -No recurrence of angina. -Shortness of breath related to COPD exacerbation improving. Agree with steroids , nebulizer. (2) COPD exacerbation Status: Acute Assessment and plan: SEE PLAN OF CARE LISTED BELOW. (3) Coronary artery disease Status: Chronic Assessment and plan: SEE PLAN OF CARE LISTED BELOW. (4) Diabetes mellitus Status: Chronic Assessment and plan: SEE PLAN OF CARE LISTED BELOW. (5) Dyslipidemia Status: Chronic Assessment and plan: SEE PLAN OF CARE LISTED BELOW. (6) Dyspnea Status: Chronic Assessment and plan: SEE PLAN OF CARE LISTED BELOW. (7) Essential hypertension Status: Chronic Assessment and plan: SEE PLAN OF CARE LISTED BELOW. (8) Former smoker, stopped smoking in distant past Status: Chronic Assessment and plan: SEE PLAN OF CARE LISTED BELOW. (9) Obesity (BMI 30-39.9) Status: Chronic Assessment and plan: SEE PLAN OF CARE LISTED BELOW. (10) Status post insertion of drug eluting coronary artery stent Status: Chronic Assessment and plan: SEE PLAN OF CARE LISTED BELOW. Cardiology - PN: Subj Interval history: MATHEMATICS TEACHER: DR. FREDERICK PCP: DR. RUSH Mr. Rodriguez is a 77 year old -[place] male with history of hypertension, diabetes, hyperlipidemia, coronary artery disease, and GERD who presented to the hospital on 04/29/17 with complaints of chest pain and shortness of breath. His symptoms were suggestive of his prior angina and were responsive to nitroglycerin. He had negative troponins with rhodes-zone CK-MBs and it was felt further evaluation was warranted. He underwent left heart catheterization on 05/[address] La and was found to have distal LAD stenosis for medical management, a widely patent proximal LAD stent, normal LV size and function, and normal end-diastolic pressures. The area of stenosis was very tortuous distally and would likely be a suboptimal result if PCI were attempted. These results were discussed with the patient. When discussing follow up, Mr. Rodriguez declined to follow up with cardiology and for this reason, we will not make him a follow up appointment with Dr. Frederick but recommend he follow up with his PCP Dr. Rush. April: Patient was transferred from telemetry unit to [facility] yesterday afternoon , and he has done well overnight. He is awake and alert this morning. Denies recent or current chest discomfort or pain. Shortness of breath is improving, and he is in no acute respiratory distress. RFA cath site remains without bruise or hematoma and no bruits appreciated. His steroids for COPD exacerbation have been tapered, and he is continuing respiratory nebulizers. Systolic BP 115-135 mmHg. Review of cardiac monitoring shows sinus rhythm disturbance. Labs reviewed. He is planned for discharge later this morning. As noted above, he will not be following up with cardiology, but instead he will follow-up with his PCP Dr. Rush. ASSESSMENT/PLAN: 1. CHEST PAIN - Patient presents with symptoms suggestive of angina. Patient underwent LHC and was found to have distal LAD stenosis for medical management, a widely patent proximal LAD stent, normal LV size and function, and normal end- diastolic pressures. We will continue with medical therapy. He remains without angina or other cardiac complaint. 2. SHORTNESS OF BREATH- Patient reports this has progressively worsened over the last year. EF per echo on 04/30/17 was 55%. He is being treated for COPD exacerbation, and his shortness of breath has improved. 3. CORONARY ARTERY DISEASE - S/P stent to LAD and mid PDA on 03/15/15. Contine ASA, Plavix, Coreg, Cozaar. Continue current regimen at discharge. 4. HYPERTENSION - Elevated on admission. BP adequately controlled at time of discharge. Continue current regimen at discharge. 5. HYPERLIPIDEMIA - Triglycerides 107, Cholesterol 187, LDL 128, HDL 52. Will start Crestor 20mg PO QHS and monitor. 6. DIABETES - Patient has been started on accuchecks with sliding scale insulin. 7. FORMER SMOKER - Patient reportedly quit in 1964. 8. OBESITY - Chronic. Caloric restriction intake and dietary instruction recommended. Exam (Progress Note) - Constitutional Vitals: Period Temp Pulse Resp BP Sys/Garcia Pulse Ox Last 24 Hr 97.2 F-97.9 F 67-84 16-21 116-170/68-85 93-98 Exam: General appearance: Pleasant and cooperative. Overweight, no acute distress. - Head Head exam: Present: normal inspection, normocephalic, atraumatic. Absent: hematoma, laceration - Eye Eye exam: Present: EOMI. Absent: conjunctival injection, nystagmus, periorbital swelling, scleral icterus, laceration to eyelids Pupils: Present: PERRL. Absent: constricted, dilated, fixed, irregular, unequal - ENT ENT exam: Present: normal exam, normal external ear exam - Neck Neck exam: Present: normal inspection. Absent: lymphadenopathy, meningismus, tenderness, thyromegaly - Respiratory Respiratory exam: Present: clear to auscultation bilaterally. Absent: accessory muscle use, chest wall tenderness - Cardiovascular Cardiovascular exam: Present: regular rate and rhythm. Absent: carotid bruit, gallop, JVD, rubs, murmur - GI/Abdominal GI/Abdominal exam: Present: normal bowel sounds, soft. Absent: distended, firm , guarding, hernia, mass, tenderness, rebound. - Extremities Exam Extremities exam: Present: normal inspection, normal capillary refill. Upper extremity pulses 2+. Lower extremity pulses 2+. Trace pretibial edema. Absent: calf tenderness. Other: RFA cath site without bruise or hematoma. No femoral bruit appreciated. -Musculoskeletal Exam Musculoskeletal: Present: No Fluid Collection, No Pain, Normal Range of Motion - Back Exam Back exam: Present: normal inspection. Absent: muscle spasm, vertebral tenderness - Neurological Exam Neurological exam: Present: alert, oriented X3, grossly intact without resting or essential tremor - Psychiatric Psychiatric exam: Present: normal affect, normal mood - Skin Skin exam: Present: normal color, warm, dry, intact. Absent: cyanosis, diaphoretic, rash, urticaria Result/EKG - Labs CBC & BMP: 05/03/17 05:57 05/03/17 05:57 Lab Results: I have reviewed the past 24 hour labs Labs: Laboratory Results - last 24 hr 05/02/17 05/03/17 05/03/17 16:20 05:57 05:57 WBC 15.4 H RBC 3.98 Hgb 10.4 L Hct 32.8 L MCV 82.4 L MCH 26 L MCHC 31.7 L RDW 14.4 Plt Count 206 MPV 11.2 Neut % (Auto) 87.9 H Lymph % (Auto) 5.6 L [place] % (Auto) 5.1 Eos % (Auto) 0.0 Baso % (Auto) 0.1 Neut # (Auto) 13.6 H Lymph # (Auto) 0.9 L [place] # (Auto) 0.8 Eos # (Auto) 0.0 Baso # (Auto) 0.0 Immature Gran % 1.3 Nucleated RBC % 0.0 Immature Gran # 0.20 Nucleated RBCs # 0.00 Sodium 142 Potassium 4.4 Chloride 106 Carbon Dioxide 27 Anion Gap 13.4 BUN 20 H Creatinine 1.00 GFR Calculation 107 BUN/Creatinine Ratio 20.00 Glucose 240 H POC Glucose 351 H Calculated Osmolality 293.1 Calcium 8.9 Magnesium 2.4 05/03/17 05/03/17 07:55 10:50 WBC RBC Hgb Hct MCV MCH MCHC RDW Plt Count MPV Neut % (Auto) Lymph % (Auto) [place] % (Auto) Eos % (Auto) Baso % (Auto) Neut # (Auto) Lymph # (Auto) [place] # (Auto) Eos # (Auto) Baso # (Auto) Immature Gran % Nucleated RBC % Immature Gran # Nucleated RBCs # Sodium Potassium Chloride Carbon Dioxide Anion Gap BUN Creatinine GFR Calculation BUN/Creatinine Ratio Glucose POC Glucose 273 H 301 H Calculated Osmolality Calcium Magnesium - Diagnostic Findings Procedure: Chest x-ray: image reviewed by me, report reviewed by me - EKG EKG results: interpreted by me, no acute changes EKG shows: sinus rhythm Quality Measures - VTE Contraindication to Pharmacological VTE Prophylaxis: High Risk of Bleeding Specialty Discharge - Follow Up or Referrals Follow up with: Dennis Nelson MD [Physician] - 05/17/17 9:20 am Roge Rush MD [Physician] - 05/16/17 1:00 pm ILeslie Dale, MD, personally performed the services described in this documentation, ascribed by Stella Dave RN in my presence, and it is both accurate and complete .
== END 2017-05-03 13:28 | disposition home health service (06) | DRG 287 ==
LOC: EDBD → EDUNIT# → N.ED 10:32 → N.EDINP 13:24 → SUATTDRO 13:24 → N.EDINP 14:37 → N.TELES 14:59 → N.5E 05-02 18:00
PROVIDERS: ADMIT Internal Medicine; ATTEND Internal Medicine
PROC: CLCCHCL (ICD-10-PCS; 2017-05-01 14:15)

== ENCOUNTER 2020-05-31 01:00 | Inpatient (IN) ==
[2020-05-31] MEDS ORDERED: SODIUM CHLORIDE 0.9% 500 ML IV STA (02:17)
[2020-05-31] MEDS ORDERED: PANTOPRAZOLE 40 MG VIAL IV STA (02:17)
[2020-05-31] MEDS ORDERED: MORPHINE 4 MG/1 ML VIAL IV STA (02:17)
[2020-05-31] MEDS ORDERED: ONDANSETRON 4 MG/2 ML VIAL IV STA (02:17)
[2020-05-31 03:06] LABS: Basophils % 0.1 % (0.0-0.8); Eosinophils # 0.2 10*3/uL (0.0-0.87); Eosinophils % 2.8 % (0.00-10.9); Hematocrit 39.8 VOL% (42.0-52.0); Hemoglobin 12.1 GM/DL (14.0-18.0); Immature Granulocytes % 0.4 %; Immature Granulocytes Absolute 0.03 #; Lymphocytes # 1.1 10*3/uL (1.4-4.0); Lymphocytes % 13.6 % (21.2-54.2); Mean Corpuscular HGB Conc 30.4 GM/DL (32-36); Mean Corpuscular Volume 92.1 FL (87-102); Mean Platelet Volume 11.4 FL (9.6-12.0); Neutrophils % 75.1 % (38.7-73.9); Platelet Count 183 T/CUMM (130-400); Red Blood Count 4.32 MC/CUMM (3.8-5.5); Red Cell Distribution Width 12.9 % (9.3-17.3); White Blood Count 7.7 T/CUMM (4-12)
[2020-05-31 03:18] LABS: Alanine Aminotransferase 19 U/L (16-61); Alkaline Phosphatase 100 U/L (45-117); Amylase 237 U/L (25-115); Aspartate Amino Transferase 18 U/L (0-37); Bilirubin,Total < 0.39 MG/DL (0.2-1.0); Blood Urea Nitrogen 20 MG/DL (7-18); Calcium 9.4 MG/DL (8.5-10.1); Estimated Glom Filtration Rate 108 ML/MIN; Glucose 212 MG/DL (74-106); Osmolality,Calculated 287.4 MOS/KG (273-304)
[2020-05-31 03:57] LABS: Amorphous Crystals,Urine Occasional /HPF (Few); Apearance,Urine CLEAR (Clear); Bacteria,Urine Occasional /HPF (Few); Bilirubin,Urine Negative (Negative); Blood, Urine Small mg/dL (Negative); Glucose,Urine (UA) 50 mg/dL (Negative); Hyaline Casts,Urine 1 /LPF (0-3); Ketones,Urine Negative (Negative); Mucus,Urine Occasional /LPF (Occasional); Nitrite,Urine Negative (Negative); Protein,Urine >=500 MG/DL; RBC,Urine 1 /HPF (0-4); Squamous Epithelial Cell,Urine Occasional /HPF (0-10); Urine Color Yellow (Yellow); Urine Specific Gravity 1.026 (1.001-1.035); Urine Urobilinogen < 2.0 EU/DL (0.2-1.0); WBC,Urine 1 /HPF (0-6)
[2020-05-31] MEDS ORDERED: DEXTROSE 50% 25 GM/50 ML VIAL IV PRN ×2 (05:02→06:35)
[2020-05-31] MEDS ORDERED: GLUCAGON 1 MG VIAL IM PRN (05:02)
[2020-05-31] MEDS ORDERED: MORPHINE 4 MG/1 ML VIAL IV PRN (05:02)
[2020-05-31] MEDS ORDERED: ACETAMINOPHEN 325 MG TABLET PO PRN (05:02)
[2020-05-31] MEDS ORDERED: hydrALAZINE 20 MG/1 ML VIAL IV PRN (05:02)
[2020-05-31] MEDS ORDERED: NICOTINE 21 MG/24 HR PATCH TRANSDERM PRN (05:02)
[2020-05-31] MEDS ORDERED: PROMETHAZINE 25 MG/1 ML VIAL IM PRN (05:02)
[2020-05-31] MEDS ORDERED: ONDANSETRON 4 MG/2 ML VIAL IV PRN (05:02)
[2020-05-31] MEDS ORDERED: SODIUM CHLORIDE 0.9% 1,000 ML IV SCH (05:30)
[2020-05-31 05:35] LABS: Risk Ratio 3.47; VLDL CHOLESTEROL 19.8 MG/DL
[2020-05-31] MEDS: INSULIN REGULAR 100 UNIT/ML SUBCUT SCH ×3 (06:17→18:34)
[2020-05-31] MEDS: ASPIRIN EC 81 MG TABLET PO SCH (08:24)
[2020-05-31] MEDS: TICAGRELOR 90 MG TABLET PO SCH ×2 (08:24→21:38)
[2020-05-31] MEDS ORDERED: carvediloL 3.125 MG TABLET PO ONE (08:30)
[2020-05-31] MEDS: POTASSIUM CHLORIDE INJ 10 MEQ in LACTATED RINGERS 1,000 ML IV SCH (17:56)
[2020-05-31] MEDS: carvediloL 12.5 MG TABLET PO SCH (21:38)
[2020-06-01] MEDS: INSULIN REGULAR 100 UNIT/ML SUBCUT SCH ×4 (00:19→21:21)
[2020-06-01] MEDS: POTASSIUM CHLORIDE INJ 10 MEQ in LACTATED RINGERS 1,000 ML IV SCH ×5 (01:44→20:32)
[2020-06-01 05:18] LABS: Basophils % 0.5 % (0.0-0.8); Eosinophils # 0.3 10*3/uL (0.0-0.87); Eosinophils % 4.8 % (0.00-10.9); Hematocrit 40.6 VOL% (42.0-52.0); Hemoglobin 12.3 GM/DL (14.0-18.0); Immature Granulocytes % 0.5 %; Immature Granulocytes Absolute 0.03 #; Lymphocytes # 0.9 10*3/uL (1.4-4.0); Lymphocytes % 13.3 % (21.2-54.2); Mean Corpuscular HGB Conc 30.3 GM/DL (32-36); Mean Corpuscular Volume 92.3 FL (87-102); Mean Platelet Volume 10.9 FL (9.6-12.0); Monocytes % 7.8 % (1.7-12.7); Neutrophils % 73.1 % (38.7-73.9); Platelet Count 187 T/CUMM (130-400); White Blood Count 6.6 T/CUMM (4-12)
[2020-06-01 05:58] LABS: Calcium 9.3 MG/DL (8.5-10.1); Osmolality,Calculated 281.1 MOS/KG (273-304)
[2020-06-01 06:07] LABS: Albumin 2.6 G/DL (3.4-5.0); Bilirubin,Total 1.2 MG/DL (0.2-1.0); Calcium 9.2 MG/DL (8.5-10.1); Osmolality,Calculated 282.1 MOS/KG (273-304); Total Protein 6.4 G/DL (6.4-8.3)
[2020-06-01] MEDS ORDERED: MAGNESIUM SULF RIDER 2 GM in PREMIX 1 EACH IV ONE (09:50)
[2020-06-01] MEDS: lisinopriL 10 MG TABLET PO SCH (10:20)
[2020-06-01] MEDS: carvediloL 12.5 MG TABLET PO SCH ×2 (10:20→21:21)
[2020-06-01] MEDS: PANTOPRAZOLE 40 MG VIAL IV SCH (10:22)
[2020-06-01] MEDS: TICAGRELOR 90 MG TABLET PO SCH (14:18)
[2020-06-01] MEDS: ASPIRIN EC 81 MG TABLET PO SCH (14:18)
[2020-06-01] MEDS ORDERED: ROSUVASTATIN 20 MG TABLET PO SCH (21:00)
[2020-06-02] MEDS: POTASSIUM CHLORIDE INJ 10 MEQ in LACTATED RINGERS 1,000 ML IV SCH ×2 (02:17→11:28)
[2020-06-02] MEDS: INSULIN REGULAR 100 UNIT/ML SUBCUT SCH ×3 (02:17→11:27)
[2020-06-02 05:54] LABS: Basophils % 0.2 % (0.0-0.8); Eosinophils # 0.2 10*3/uL (0.0-0.87); Eosinophils % 3.8 % (0.00-10.9); Hematocrit 39.6 VOL% (42.0-52.0); Immature Granulocytes % 0.4 %; Immature Granulocytes Absolute 0.02 #; Lymphocytes # 0.9 10*3/uL (1.4-4.0); Mean Corpuscular HGB Conc 30.3 GM/DL (32-36); Mean Corpuscular Volume 91.2 FL (87-102); Mean Platelet Volume 10.9 FL (9.6-12.0); Monocytes % 9.5 % (1.7-12.7); Neutrophils % 70.1 % (38.7-73.9); Platelet Count 204 T/CUMM (130-400); Red Blood Count 4.34 MC/CUMM (3.8-5.5); Red Cell Distribution Width 12.9 % (9.3-17.3); White Blood Count 5.5 T/CUMM (4-12)
[2020-06-02 06:17] LABS: Calcium 9.2 MG/DL (8.5-10.1); Osmolality,Calculated 279.3 MOS/KG (273-304)
[2020-06-02] MEDS ORDERED: ALBUTEROL 2.5 MG/3 ML NEB RESP TX ONE (07:56)
[2020-06-02] MEDS ORDERED: ALBUTEROL 2.5 MG/3 ML NEB RESP TX SCH (09:00)
[2020-06-02] MEDS ORDERED: PHENYLEPHRINE 1 MG/10 ML SYRINGE IV ONE (09:00)
[2020-06-02] MEDS ORDERED: SPIRONOLACTONE 25 MG TABLET PO SCH (09:00)
[2020-06-02] MEDS ORDERED: POTASSIUM CHLORIDE 8 MEQ CAPSULE PO SCH (09:00)
[2020-06-02] MEDS ORDERED: LIDOCAINE 2% 5 ML VIAL ONE (09:00)
[2020-06-02] MEDS ORDERED: propofoL 200 MG/20 ML VIAL IV ONE (09:00)
[2020-06-02] MEDS: lisinopriL 10 MG TABLET PO SCH (10:33)
[2020-06-02] MEDS: carvediloL 12.5 MG TABLET PO SCH (10:33)
[2020-06-02] MEDS: ASPIRIN EC 81 MG TABLET PO SCH (10:34)
[2020-06-02] MEDS: PANTOPRAZOLE 40 MG VIAL IV SCH (10:34)
[2020-06-02 12:33] VITALS: BP 168/97
[2020-06-03] MEDS ORDERED: FUROSEMIDE 20 MG TABLET PO SCH (09:00)
== END 2020-06-02 13:15 | disposition home health service (06) | DRG 438 ==
LOC: EDUNIT# → EDBD → N.EDINP 01:00 → N.ED 01:00 → SUATTDRO 05:02 → N.EDINP 15:15 → N.TELES 15:21
PROVIDERS: ADMIT Hospitalist; ATTEND Internal Medicine

== ENCOUNTER 2020-06-10 08:58 | Observation (INO) ==
[2020-06-10] MEDS ORDERED: METOPROLOL TARTRATE 25 MG TABLET PO STA (09:22)
[2020-06-10] MEDS ORDERED: PANTOPRAZOLE 40 MG VIAL IV STA (09:22)
[2020-06-10] MEDS ORDERED: METOCLOPRAMIDE 10 MG/2 ML VIAL IV STA (09:22)
[2020-06-10] MEDS ORDERED: SODIUM CHLORIDE 0.9% 1,000 ML IV STA (09:22)
[2020-06-10] MEDS ORDERED: ASPIRIN 325 MG TABLET PO STA (09:22)
[2020-06-10] MEDS ORDERED: INSULIN REGULAR 100 UNIT/ML IV ONE (09:27)
[2020-06-10 09:33] LABS: Basophils % 0.5 % (0.0-0.8); Eosinophils # 0.3 10*3/uL (0.0-0.87); Eosinophils % 3.4 % (0.00-10.9); Hematocrit 39.2 VOL% (42.0-52.0); Immature Granulocytes % 0.3 %; Immature Granulocytes Absolute 0.02 #; Lymphocytes # 1.5 10*3/uL (1.4-4.0); Lymphocytes % 19.8 % (21.2-54.2); Mean Corpuscular HGB Conc 30.6 GM/DL (32-36); Mean Corpuscular Volume 91.2 FL (87-102); Monocytes % 7.1 % (1.7-12.7); Neutrophils % 68.9 % (38.7-73.9); Platelet Count 228 T/CUMM (130-400); Red Cell Distribution Width 12.5 % (9.3-17.3); White Blood Count 7.3 T/CUMM (4-12)
[2020-06-10 09:47] LABS: INR 1.1; PT Patient Result 11.8 SECS (9.8-11.9); Partial Thromboplastin Time 29.3 SECS (23.9-33.8)
[2020-06-10 10:00] LABS: Alanine Aminotransferase 20 U/L (16-61); Albumin 3.2 G/DL (3.4-5.0); Alkaline Phosphatase 104 U/L (45-117); Aspartate Amino Transferase 23 U/L (0-37); Bilirubin,Total < 0.39 MG/DL (0.2-1.0); Blood Urea Nitrogen 13 MG/DL (7-18); CKMB % 1.9 %; Calcium 8.6 MG/DL (8.5-10.1); Estimated Glom Filtration Rate 74 ML/MIN; Glucose 352 MG/DL (74-106); Osmolality,Calculated 294.3 MOS/KG (273-304); Total Protein 7.3 G/DL (6.4-8.3)
[2020-06-10 10:02] LABS: Troponin I 0.053 NG/ML (0.00-0.045)
[2020-06-10 11:04] LABS: Apearance,Urine CLEAR (Clear); Bilirubin,Urine Negative (Negative); Blood, Urine Small mg/dL (Negative); Glucose,Urine (UA) >=500 mg/dL (Negative); Ketones,Urine Negative (Negative); Mucus,Urine Occasional /LPF (Occasional); Nitrite,Urine Negative (Negative); Protein,Urine 100 MG/DL; RBC,Urine 1 /HPF (0-4); Urine Color Yellow (Yellow); Urine Specific Gravity 1.017 (1.001-1.035); Urine Urobilinogen < 2.0 EU/DL (0.2-1.0); WBC,Urine <1 /HPF (0-6)
[2020-06-10] MEDS ORDERED: FUROSEMIDE 40 MG/4 ML VIAL IV STA (11:07)
[2020-06-10] MEDS ORDERED: hydrALAZINE 20 MG/1 ML VIAL IV STA (11:21)
[2020-06-10] MEDS ORDERED: DEXTROSE 50% 25 GM/50 ML VIAL IV PRN (11:33)
[2020-06-10] MEDS ORDERED: ONDANSETRON 4 MG/2 ML VIAL IV PRN (11:33)
[2020-06-10] MEDS ORDERED: GLUCAGON 1 MG VIAL IM PRN (11:33)
[2020-06-10] MEDS ORDERED: ACETAMINOPHEN 325 MG TABLET PO PRN (11:33)
[2020-06-10] MEDS ORDERED: hydrALAZINE 20 MG/1 ML VIAL IV PRN (11:33)
[2020-06-10 11:34] LABS: Barbiturates Screen,Urine Negative (Negative); Benzodiazepines Screen,Urine Negative (Negative); Cannabinoid Screen,Urine Negative (Negative); Opiate Screen,Urine Negative (Negative); Phencyclidine Screen,Urine Negative (Negative)
[2020-06-10 13:43] LABS: Apearance,Urine CLEAR (Clear); Bilirubin,Urine Negative (Negative); Blood, Urine Negative (Negative); Glucose,Urine (UA) 50 mg/dL (Negative); Ketones,Urine Negative (Negative); Mucus,Urine Occasional /LPF (Occasional); Nitrite,Urine Negative (Negative); Protein,Urine Negative; RBC,Urine <1 /HPF (0-4); Urine Color Colorless (Yellow); Urine Specific Gravity 1.004 (1.001-1.035); Urine Urobilinogen < 2.0 EU/DL (0.2-1.0); WBC,Urine <1 /HPF (0-6)
[2020-06-10] MEDS: INSULIN REGULAR 100 UNIT/ML SUBCUT SCH ×2 (16:35→20:38)
[2020-06-10] MEDS: predniSONE 10 MG TABLET PO SCH (20:36)
[2020-06-10] MEDS: TICAGRELOR 90 MG TABLET PO SCH (20:38)
[2020-06-10] MEDS: carvediloL 25 MG TABLET PO SCH (20:38)
[2020-06-10] MEDS ORDERED: LATANOPROST 0.005% OPH SOLN 2.5 ML BOTTLE BOTH EYES SCH (21:00)
[2020-06-10] MEDS ORDERED: lisinopriL 10 MG TABLET PO ONE (21:00)
[2020-06-10] MEDS ORDERED: carvediloL 12.5 MG TABLET PO SCH (21:00)
[2020-06-11 05:27] LABS: Basophils % 0.3 % (0.0-0.8); Eosinophils # 0.2 10*3/uL (0.0-0.87); Eosinophils % 2.2 % (0.00-10.9); Hematocrit 37.9 VOL% (42.0-52.0); Hemoglobin 11.5 GM/DL (14.0-18.0); Immature Granulocytes % 0.4 %; Immature Granulocytes Absolute 0.03 #; Lymphocytes # 0.9 10*3/uL (1.4-4.0); Lymphocytes % 12.1 % (21.2-54.2); Mean Corpuscular HGB Conc 30.3 GM/DL (32-36); Mean Corpuscular Volume 91.8 FL (87-102); Mean Platelet Volume 11.3 FL (9.6-12.0); Monocytes % 4.8 % (1.7-12.7); Neutrophils % 80.2 % (38.7-73.9); Platelet Count 220 T/CUMM (130-400); Red Blood Count 4.13 MC/CUMM (3.8-5.5); Red Cell Distribution Width 12.5 % (9.3-17.3); White Blood Count 7.7 T/CUMM (4-12)
[2020-06-11 05:49] LABS: Calcium 8.6 MG/DL (8.5-10.1); Osmolality,Calculated 284.5 MOS/KG (273-304)
[2020-06-11] MEDS ORDERED: ALBUTEROL 2.5 MG/3 ML NEB RESP TX SCH (07:00)
[2020-06-11 07:56] VITALS: BP 135/76
[2020-06-11] MEDS: TICAGRELOR 90 MG TABLET PO SCH (08:33)
[2020-06-11] MEDS: carvediloL 25 MG TABLET PO SCH (08:33)
[2020-06-11] MEDS: predniSONE 10 MG TABLET PO SCH (08:33)
[2020-06-11] MEDS: INSULIN REGULAR 100 UNIT/ML SUBCUT SCH (08:33)
[2020-06-11] MEDS ORDERED: ASPIRIN EC 81 MG TABLET PO SCH (09:00)
[2020-06-11] MEDS ORDERED: INSULIN GLARGINE 100 UNIT/ML SUBCUT SCH (09:00)
[2020-06-11] MEDS ORDERED: FUROSEMIDE 40 MG TABLET PO SCH (09:00)
[2020-06-11] MEDS ORDERED: ROSUVASTATIN 20 MG TABLET PO SCH (09:00)
[2020-06-11] MEDS ORDERED: PANTOPRAZOLE 40 MG TABLET PO SCH (09:00)
[2020-06-11] MEDS ORDERED: lisinopriL 20 MG TABLET PO SCH (09:00)
== END 2020-06-11 11:20 | disposition home or self-care (01) ==
LOC: N.EDINP 08:58 → N.ED 08:58 → N.TELEN 12:40
PROVIDERS: ADMIT Hospitalist; ATTEND Hospitalist

== ENCOUNTER 2020-08-03 08:27 | Inpatient (IN) ==
[2020-08-03 09:06] LABS: Basophils % 0.4 % (0.0-0.8); Eosinophils # 0.1 10*3/uL (0.0-0.87); Eosinophils % 1.3 % (0.00-10.9); Hematocrit 38.1 VOL% (42.0-52.0); Hemoglobin 11.7 GM/DL (14.0-18.0); Immature Granulocytes % 0.6 %; Immature Granulocytes Absolute 0.04 #; Lymphocytes # 1.1 10*3/uL (1.4-4.0); Lymphocytes % 15.9 % (21.2-54.2); Mean Corpuscular HGB Conc 30.7 GM/DL (32-36); Mean Corpuscular Volume 92.9 FL (87-102); Mean Platelet Volume 11.4 FL (9.6-12.0); Monocytes % 8.5 % (1.7-12.7); Neutrophils % 73.3 % (38.7-73.9); Platelet Count 182 T/CUMM (130-400); Red Cell Distribution Width 12.8 % (9.3-17.3); White Blood Count 6.8 T/CUMM (4-12)
[2020-08-03] MEDS ORDERED: SODIUM CHLORIDE 0.9% 500 ML IV STA (09:38)
[2020-08-03 09:41] LABS: Albumin 3.4 G/DL (3.4-5.0); Bilirubin,Total 0.6 MG/DL (0.2-1.0); Calcium 9.5 MG/DL (8.5-10.1); Osmolality,Calculated 305.7 MOS/KG (273-304); Total Protein 6.6 G/DL (6.4-8.3)
[2020-08-03] MEDS ORDERED: INSULIN LISPRO 100 UNIT/ML SUBCUT STA (10:39)
[2020-08-03] MEDS ORDERED: ONDANSETRON 4 MG/2 ML VIAL IV PRN (11:55)
[2020-08-03] MEDS ORDERED: DOCUSATE SODIUM 100 MG CAPSULE PO PRN (11:55)
[2020-08-03] MEDS ORDERED: hydrALAZINE 20 MG/1 ML VIAL IV PRN (11:55)
[2020-08-03] MEDS ORDERED: guaiFENesin/DM ER 600-30 MG TABLET PO PRN (11:55)
[2020-08-03] MEDS ORDERED: GLUCAGON 1 MG VIAL IM PRN (11:55)
[2020-08-03] MEDS ORDERED: DEXTROSE 50% 25 GM/50 ML VIAL IV PRN ×2 (11:55)
[2020-08-03 14:44] LABS: Hepatitis B Core IgM Quant 0.22 Index; Hepatitis B Surface Ag Quant < 0.10 Index; Hepatitis B Surface Ag Result Negative (Negative); Hepatitis C Virus Ab Quant 0.14 Index; Hepatitis C Virus Ab Result Negative (Negative)
[2020-08-03] MEDS: SODIUM CHLORIDE 0.9% 1,000 ML IV SCH (14:51)
[2020-08-03] MEDS: ENOXAPARIN 40 MG/0.4 ML SYRINGE SUBCUT SCH (15:09)
[2020-08-03] MEDS: INSULIN REGULAR 100 UNIT/ML SUBCUT SCH ×2 (17:28→21:22)
[2020-08-03] MEDS: INSULIN GLARGINE 100 UNIT/ML SUBCUT SCH (21:23)
[2020-08-04] MEDS: SODIUM CHLORIDE 0.9% 1,000 ML IV SCH (00:51)
[2020-08-04 06:36] LABS: Basophils % 0.2 % (0.0-0.8); Eosinophils # 0.3 10*3/uL (0.0-0.87); Hematocrit 35.9 VOL% (42.0-52.0); Hemoglobin 10.9 GM/DL (14.0-18.0); Immature Granulocytes % 0.3 %; Immature Granulocytes Absolute 0.03 #; Lymphocytes % 11.1 % (21.2-54.2); Mean Corpuscular HGB Conc 30.4 GM/DL (32-36); Mean Corpuscular Volume 91.8 FL (87-102); Mean Platelet Volume 12.2 FL (9.6-12.0); Neutrophils % 77.4 % (38.7-73.9); Platelet Count 169 T/CUMM (130-400); Red Blood Count 3.91 MC/CUMM (3.8-5.5); Red Cell Distribution Width 12.9 % (9.3-17.3); White Blood Count 9.2 T/CUMM (4-12)
[2020-08-04] MEDS: INSULIN REGULAR 100 UNIT/ML SUBCUT SCH ×4 (07:24→22:03)
[2020-08-04 07:56] LABS: Calcium 9.3 MG/DL (8.5-10.1); Osmolality,Calculated 293.6 MOS/KG (273-304); Risk Ratio 2.49; VLDL CHOLESTEROL 17.6 MG/DL
[2020-08-04 08:08] LABS: Apearance,Urine CLEAR (Clear); Bacteria,Urine Occasional /HPF (Few); Bilirubin,Urine Negative (Negative); Blood, Urine Small mg/dL (Negative); Glucose,Urine (UA) >=500 mg/dL (Negative); Ketones,Urine Negative (Negative); Mucus,Urine Occasional /LPF (Occasional); Nitrite,Urine Negative (Negative); Protein,Urine >=500 MG/DL; RBC,Urine 1 /HPF (0-4); Squamous Epithelial Cell,Urine Occasional /HPF (0-10); Urine Color Yellow (Yellow); Urine Specific Gravity 1.015 (1.001-1.035); Urine Urobilinogen < 2.0 EU/DL (0.2-1.0); WBC,Urine 5 /HPF (0-6)
[2020-08-04 08:23] LABS: Alanine Aminotransferase 200 U/L (16-61); Albumin 3.2 G/DL (3.4-5.0); Alkaline Phosphatase 149 U/L (45-117); Aspartate Amino Transferase 118 U/L (0-37); Bilirubin,Direct < 0.100 MG/DL (0.0-0.20); Bilirubin,Indirect 0.3 MG/DL (0.0-1.0); Bilirubin,Total < 0.39 MG/DL (0.2-1.0); Total Protein 6.5 G/DL (6.4-8.3)
[2020-08-04] MEDS ORDERED: INSULIN DEGLUDEC 48 UNIT SUBCUT SCH (09:00)
[2020-08-04] MEDS ORDERED: PANTOPRAZOLE 40 MG TABLET PO SCH (09:00)
[2020-08-04] MEDS: ASPIRIN EC 81 MG TABLET PO SCH (09:16)
[2020-08-04] MEDS: TICAGRELOR 90 MG TABLET PO SCH ×2 (09:16→22:04)
[2020-08-04] MEDS: ENOXAPARIN 40 MG/0.4 ML SYRINGE SUBCUT SCH (12:04)
[2020-08-04 13:05] LABS: CKMB % 2.8 %
[2020-08-04 13:08] LABS: Troponin I 2.65 NG/ML (0.00-0.045)
[2020-08-04] MEDS ORDERED: MAGNESIUM SULF RIDER 2 GM in PREMIX 1 EACH IV PRN (14:52)
[2020-08-04 15:50] LABS: CKMB % 2.7 %
[2020-08-04] MEDS ORDERED: FUROSEMIDE 40 MG/4 ML VIAL IV ONE (15:57)
[2020-08-04 15:58] LABS: Troponin I 2.39 NG/ML (0.00-0.045)
[2020-08-04] MEDS: carvediloL 12.5 MG TABLET PO SCH (18:00)
[2020-08-04] MEDS: PANTOPRAZOLE 40 MG TABLET PO SCH (18:00)
[2020-08-04] MEDS: ALBUTEROL 2.5 MG/3 ML NEB RESP TX SCH (19:47)
[2020-08-04] MEDS ORDERED: carvediloL 12.5 MG TABLET PO SCH (21:00)
[2020-08-04] MEDS: LATANOPROST 0.005% OPH SOLN 2.5 ML BOTTLE BOTH EYES SCH (22:03)
[2020-08-04] MEDS: INSULIN GLARGINE 100 UNIT/ML SUBCUT SCH (22:03)
[2020-08-05 05:03] LABS: Basophils % 0.5 % (0.0-0.8); Eosinophils # 0.2 10*3/uL (0.0-0.87); Eosinophils % 4.1 % (0.00-10.9); Hematocrit 33.9 VOL% (42.0-52.0); Hemoglobin 10.6 GM/DL (14.0-18.0); Immature Granulocytes % 0.3 %; Immature Granulocytes Absolute 0.02 #; Lymphocytes # 1.3 10*3/uL (1.4-4.0); Lymphocytes % 22.6 % (21.2-54.2); Mean Corpuscular HGB Conc 31.3 GM/DL (32-36); Mean Corpuscular Volume 90.6 FL (87-102); Mean Platelet Volume 11.8 FL (9.6-12.0); Monocytes % 10.1 % (1.7-12.7); Neutrophils % 62.4 % (38.7-73.9); Platelet Count 158 T/CUMM (130-400); Red Blood Count 3.74 MC/CUMM (3.8-5.5); Red Cell Distribution Width 12.9 % (9.3-17.3); White Blood Count 5.8 T/CUMM (4-12)
[2020-08-05 05:28] LABS: Osmolality,Calculated 288.7 MOS/KG (273-304)
[2020-08-05] MEDS: ALBUTEROL 2.5 MG/3 ML NEB RESP TX SCH (07:25)
[2020-08-05] MEDS: ASPIRIN EC 81 MG TABLET PO SCH (08:37)
[2020-08-05] MEDS: carvediloL 12.5 MG TABLET PO SCH ×2 (08:37→16:44)
[2020-08-05] MEDS: TICAGRELOR 90 MG TABLET PO SCH ×2 (08:37→21:08)
[2020-08-05] MEDS: lisinopriL 10 MG TABLET PO SCH (08:37)
[2020-08-05] MEDS: POTASSIUM CHLORIDE RIDER 10 MEQ in PREMIX 1 EACH IV PRN ×2 (08:38→11:00)
[2020-08-05] MEDS: INSULIN REGULAR 100 UNIT/ML SUBCUT SCH ×4 (08:48→20:49)
[2020-08-05] MEDS ORDERED: FUROSEMIDE 20 MG TABLET PO SCH (09:00)
[2020-08-05] MEDS ORDERED: LIDOCAINE 1% 20 ML VIAL ONE (10:29)
[2020-08-05] MEDS ORDERED: HEPARIN/NACL 0.9% 2 UNITS/ML 1,000 ML IV ONE (10:30)
[2020-08-05] MEDS ORDERED: VERAPAMIL 5 MG/2 ML VIAL ONE (10:30)
[2020-08-05] MEDS ORDERED: NITROGLYCERIN DRIP 50 MG/250 ML BOTTLE IV ONE (10:30)
[2020-08-05] MEDS ORDERED: diphenhydrAMINE CAP 25 MG CAPSULE PO ONE (11:00)
[2020-08-05] MEDS ORDERED: DIAZEPAM 5 MG TABLET PO ONE (11:00)
[2020-08-05] MEDS: ENOXAPARIN 40 MG/0.4 ML SYRINGE SUBCUT SCH (11:10)
[2020-08-05] MEDS ORDERED: HYDROmorphone 2 MG/1 ML VIAL ONE (11:30)
[2020-08-05] MEDS ORDERED: MIDAZOLAM 2 MG/2 ML VIAL ONE (11:31)
[2020-08-05] MEDS: FUROSEMIDE 40 MG TABLET PO SCH ×2 (11:31→14:25)
[2020-08-05] MEDS ORDERED: SODIUM CHLORIDE 0.9% 1,000 ML IV SCH (12:30)
[2020-08-05] MEDS: PANTOPRAZOLE 40 MG TABLET PO SCH (16:44)
[2020-08-05] MEDS: LATANOPROST 0.005% OPH SOLN 2.5 ML BOTTLE BOTH EYES SCH (20:49)
[2020-08-05] MEDS: INSULIN GLARGINE 100 UNIT/ML SUBCUT SCH (20:49)
[2020-08-06] MEDS: ALBUTEROL 2.5 MG/3 ML NEB RESP TX SCH (07:28)
[2020-08-06] MEDS: INSULIN REGULAR 100 UNIT/ML SUBCUT SCH (07:28)
[2020-08-06] MEDS: lisinopriL 10 MG TABLET PO SCH (09:26)
[2020-08-06] MEDS: ASPIRIN EC 81 MG TABLET PO SCH (09:26)
[2020-08-06] MEDS: FUROSEMIDE 40 MG TABLET PO SCH (09:26)
[2020-08-06] MEDS: TICAGRELOR 90 MG TABLET PO SCH (09:26)
[2020-08-06] MEDS: carvediloL 12.5 MG TABLET PO SCH (09:26)
[2020-08-06 12:22] VITALS: BP 154/87
== END 2020-08-06 13:11 | disposition home health service (06) | DRG 638 ==
LOC: N.ED 08:27 → N.EDINP 11:32 → N.3E 14:54
PROVIDERS: ADMIT Family Medicine; ATTEND Family Medicine
PROC: CLCCHCL (ICD-10-PCS; 2020-08-05 11:45)